=== PATIENT | female | born 1990 | race Hispanic/Latino ===

== ENCOUNTER 2020-02-01 15:41 | Outpatient (CLI) | payer OTHER, SELFPAY ==
--- NOTE | ~2020-02-01 | US_ITS ---
US breast LT complete DATE: 02/01/2020 16:11 INDICATION: Left breast pain TECHNIQUE: Real-time imaging and color flow imaging of the left breast COMPARISON: 12/05/2016 bilateral complete breast ultrasound examination FINDINGS: There is a benign appearing approximately 9.5 x 27.4 x 32.6 mm left axillary lymph node. No suspicious mass or shadowing of the left breast is evident. IMPRESSION: BI-RADS Category 2: Benign Reviewed, dictated and finalized at Location A. Reviewed, dictated and finalized at location A. IMPRESSION: BI-RADS Category 2: Benign
== END 2020-02-01 15:42 | disposition home or self-care (01) ==
PROVIDERS: Visit Provider Nurse Practitioner Obstetrics & Gynecology
DX: N64.4 Mastodynia (principal)
CPT/HCPCS: 76641

== ENCOUNTER 2022-01-08 21:52 | Emergency (ER) | payer OTHER, SELFPAY ==
--- NOTE | ~2022-01-08 | US_ITS ---
EXAMINATION: US OB <=14 wk fetus w TV DATE: 01/09/2022 00:23 INDICATION: Vaginal bleeding TECHNIQUE: Real-time transabdominal and transvaginal obstetric ultrasound. FINDINGS: No prior studies for comparison. The uterus measures 8.6 x 5.3 x 6.7 cm. No intrauterine gestational sac or pole identified. End ometrium measures 1.6 cm. Right ovary measures 3.1 x 1.4 x 2 cm. Left ovary measures 3.6 x 2.2 x 2.1 cm. There is normal vascular flow in both ovaries. IMPRESSION: 1. Endometrial thickening without evidence for gestational sac or pole. Differential diagnosis includes early intrauterine , ectopic and failed . Recommend follow-up wi th quantitative beta-hCG levels and ultrasound as clinically indicated. Reviewed, dictated and finalized at location A.
--- NOTE | 2022-01-08 21:58 | ECG_ITS ---
Measurements Intervals [place] Rate: 88 P: 48 [place]: 136 QRS: 21 QRSD: 89 T: 8 QT: 333 QTc: 405 Interpretive Statements SINUS RHYTHM BORDERLINE T WAVE ABNORMALITY- ANTERIOR LEADS BORDERLINE ECG Electronically Signed On 01-09-2022 6:33:53 CDT by Chris Naidu D.O.
[2022-01-08 22:03] VITALS: BP 127/57; PULSE 81; RESP 18; TEMP 36.9; O2SAT 100
[2022-01-08 22:20] VITALS: BP 120/75; PULSE 85; RESP 20; O2SAT 100
--- NOTE | 2022-01-08 22:21 | PC.NURSE ---
Pt tells this RN that she is actually approx 6 weeks with twins.
--- NOTE | 2022-01-08 22:37 | ED.CHESTPAIN ---
HPI - Chest Pain General Chief Complaint: Chest Pain Stated Complaint: chest pain, SOB, pressure in abdomen Time Seen by Provider: 01/08/22 22:08 History of Present Illness HPI narrative: 31-year-old female presents the emergency room for evaluation of left anterior inspiratory chest pain, abdominal pain, and resolved vaginal bleeding. Patient states that she is 6 weeks . Patient states the chest pain is worse with inspiration denies any recent upper respiratory signs or symptoms. Denies cough. Denies a fever. Patient states that she is got diffuse abdominal pain. Patient states that she was experiencing heavy vaginal bleeding earlier this week and since stopped this morning. Denies any passage of tissue or clots. Related Data Allergies Allergy/AdvReac Type Severity Reaction Status Date / Time No Known Allergies Allergy Verified 01/08/22 22:24 Review of Systems Review of Systems: CONSTITUTIONAL: Denies fever, chills, or sweats. EYES: Denies visual changes, redness, or discharge. ENT: Denies rhinorrhea, congestion, sore throat, or otalgia. CARDIOVASCULAR: Reports inspiratory chest pain RESPIRATORY: Denies cough or dyspnea. GASTROINTESTINAL: Reports abdominal pain GENITOURINARY: Reports vaginal bleeding SKIN: Denies rash or itching. MUSCULOSKELETAL: Denies back pain, joint pain, or myalgia. NEUROLOGIC: Denies headache, numbness, dizziness, or weakness. PSYCHIATRIC: Denies anxiety or depression. Exam Narrative: GENERAL: Well-appearing, well-nourished, and in no acute distress. HEAD: Normocephalic, atraumatic. EYES: PERRLA and EOMI. CHEST: Clear to auscultation. No respiratory distress. No wheezes rales or rhonchi HEART: Regular rate and rhythm. No murmur heard. Normal peripheral pulses. ABDOMEN: Soft, nontender, nondistended, normal active bowel sounds. EXTREMITIES: Normal range of motion. No edema. SKIN: Warm, dry, no rash. NEURO: No focal deficits. Alert and oriented x3. PSYCH: Normal mood and affect. Course Vital Signs Vital signs: Vital Signs Temperature 36.9 C 01/08/22 22:03 Pulse Rate 81 01/08/22 22:03 Respiratory Rate 18 01/08/22 22:03 Blood Pressure 127/57 L 01/08/22 22:03 Pulse Oximetry 100 01/08/22 22:03 Oxygen Delivery Room Air 01/08/22 22:03 Temperature 36.9 C 01/08/22 22:03 Pulse Rate 85 01/08/22 22:20 Respiratory Rate 20 01/08/22 22:20 Blood Pressure 120/75 01/08/22 22:20 Pulse Oximetry 100 01/08/22 22:20 Oxygen Delivery Room Air 01/08/22 22:20 MDM - Chest Pain MDM Narrative Medical decision making narrative: 31-year-old female who is 4 weeks presented to the emergency room complaints of abdominal discomfort, first trimester vaginal bleeding and inspirational chest pain. Patient does not have a history of coagulopathy or infectious symptoms. Pelvic ultrasound showed no evidence of intrauterine . Beta hCG was 2330. Suspect completed . Will recommend patient follow-up with her [facility] for correlation for beta-hCG trend. Imaging Data Radiologist's impression: Pelvic ultrasound: No evidence for IUP. Differential includes early date versus complete . Recommend correlation with the beta-hCG trend. Follow-up sonography recommended. Discharge Plan Discharge Clinical Impression: Spontaneous miscarriage Patient Disposition: Home, Self-Care Condition: Stable Instructions: Antibiotic Form, Miscarriage (ED) Additional Instructions: Recommend following up with your [facility] this week for repeated beta-hCG trending. Tylenol and ibuprofen as needed for pain. Follow-up/Referrals: UNKNOWN,DOCTOR [Primary Care Provider] - Time of Disposition: 01:51
[2022-01-08 22:49] LABS: Basophils Percent Auto 0.3 % (0.2-1.2); Eosinophils Absolute Auto 0.1 K/mm3 (0-0.3); Eosinophils Percent Auto 0.5 % (0-4.4); Hematocrit 30.7 % (37.0-47.0); Hemoglobin 10.2 g/dL (12.0-15.0); Immature Granulocyte Absolute 0.03 K/mm3 (0.00-0.031); Immature Granulocyte Percent A 0.3 % (0-0.5); Lymphocytes Absolute Auto 0.98 K/mm3 (0.9-3.2); Lymphocytes Percent Auto 10.1 % (18.3-44.2); Mean Corpuscular HGB Conc 33.2 g/dl (32-36); Mean Corpuscular Hemoglobin 26.5 pg (26-34); Mean Corpuscular Volume 79.7 fl (80-100); Mean Platelet Volume 10.8 fl (7.4-10.4); Monocytes Absolute Auto 0.6 K/mm3 (0.1-0.6); Monocytes Percent Auto 6.1 % (2.6-8.5); Neutrophils Percent Auto 82.7 % (45.5-73.1); Platelet Count Result 210 k/mm3 (150-375); Red Blood Count 3.85 M/mm3 (4.2-5.4); Red Cell Distribution Width 12.7 % (11.5-14.5); White Blood Count 9.7 K/mm3 (4.5-10.0)
[2022-01-08 23:04] LABS: Alanine Aminotransferase 21 U/L (6-35); Albumin Level 4.3 g/dL (3.5-5.1); Alkaline Phosphatase 74 U/L (38-126); Anion Gap 7 mmol/L (8-16); Aspartate Amino Transferase 29 U/L (14-36); Bilirubin,Total 0.2 mg/dL (0.2-1.3); Blood Urea Nitrogen 10 mg/dL (7-17); Calcium 8.8 mg/dL (8.4-10.2); Carbon Dioxide 26 mmol/L (22-30); Chloride 102 mmol/L (98-107); Estimated CRCL calculation 88 ml/min; Estimated Glomerular Filt Rate > 60; Glucose 102 mg/dL (65-110); Lipase 107 U/L (23-300); Potassium 3.7 mmol/L (3.4-5.0); Sodium 135 mmol/L (137-145)
[2022-01-08] MEDS: SODIUM CHLORIDE 0.9% IV 1,000 ML 999 ML IV CONT (23:10)
[2022-01-09 02:35] VITALS: BP 120/75; PULSE 75; RESP 18; O2SAT 99
== END 2022-01-09 02:36 | disposition home or self-care (01) ==
PROVIDERS: Emergency Provider Nurse Practitioner Family
DX: O03.9 Complete or unspecified spontaneous abortion without complication (principal); R94.31 Abnormal electrocardiogram [ECG] [EKG]
CPT/HCPCS: 36415; 76801; 76817; 80053; 83690; 84702; 85025; 93005; 96360; 96361; 99284; J7030

== ENCOUNTER 2022-08-20 16:44 | Emergency (ER) | payer OTHER, SELFPAY ==
[2022-08-20] VITALS (15 sets, daily range): BP systolic 111–124; BP diastolic 59–81; PULSE 69–81; RESP 12–19; TEMP 36.6; O2SAT 98–100
--- NOTE | ~2022-08-20 | CT_ITS ---
EXAMINATION: CTA chest PE protocol DATE: 08/20/2022 20:47 INDICATION: cp, sob, recent travel, on control TECHNIQUE: Computed tomography angiography (CTA) of the chest was performed with 100 mL Omnipaque-350 intravenous contrast timed to evaluate the pulmonary arteries. Coronal maximum intensity projection 3D-reconstructions were created by the technologist. The dose-length product (DLP) was 422.86 mGy-cm. Automated exposure control and iterative reconstruction technique were employed. COMPARISON: None. FINDINGS: Lung parenchyma and airways: 3 mm peripheral right upper lobe granuloma. 7 mm left lower lobe granulo ma versus hamartoma. Dependent atelectasis. Pleura: Unremarkable. Thoracic inlet, axillae and chest wall: Unremarkable. Thoracic aorta: Normal. Mediastinum: Normal. Heart and pericardium: Normal. Coronary artery calcifications: . Upper abdomen: No significant finding. Bones: No acute osseous finding. Pulmonary arteries: Study quality: Mild motion artifact and beam hardening artifact, but overall diag nostic. No pulmonary emboli detected. IMPRESSION: Mildly limited examination. No CT evidence of acute pulmonary embolus. No acute intrathoracic process detected Reviewed, dictated and finalized at location K. URE MANAGER
--- NOTE | ~2022-08-20 | XR_ITS ---
EXAMINATION: XR chest 2V DATE: 08/20/2022 17:38 INDICATION: Shortness of breath and central chest pain TECHNIQUE: PA and lateral views of the chest were obtained. COMPARISON: None FINDINGS: The lungs are clear with no focal airspace opacities, pulmonary edema, pleural effusion or pneumothor ax. The cardiomediastinal silhouette is normal. Visualized bones and soft tissues are unremarkable. IMPRESSION: 1. Normal chest radiograph. Reviewed, dictated and finalized at location A. ENCY EXAMINER IMPRESSION: 1. Normal chest radiograph.
--- NOTE | 2022-08-20 17:08 | ECG_ITS ---
Measurements Intervals [place] Rate: 84 P: 60 [place]: 144 QRS: 36 QRSD: 91 T: -10 QT: 344 QTc: 407 Interpretive Statements SINUS RHYTHM NONSPECIFIC T-WAVE ABNORMALITY- ANT/INF LEADS BASELINE ARTIFACT- II, III, AVR, AVF BORDERLINE ECG COMPARED TO ECG 01/08/2022 22:25:48 NO SIGNIFICANT CHANGES Electronically Signed On 08-20-2022 20:15:48 ASSISTANT PRODUCER by Chris Naidu D.O.
[2022-08-20 19:34] LABS: Basophils Percent Auto 0.5 % (0.2-1.2); Eosinophils Absolute Auto 0.2 K/mm3 (0-0.3); Eosinophils Percent Auto 2.2 % (0-4.4); Hematocrit 34.7 % (37.0-47.0); Hemoglobin 11.5 g/dL (12.0-15.0); Immature Granulocyte Absolute 0.02 K/mm3 (0.00-0.031); Immature Granulocyte Percent A 0.3 % (0-0.5); Lymphocytes Absolute Auto 1.34 K/mm3 (0.9-3.2); Lymphocytes Percent Auto 17.7 % (18.3-44.2); Mean Corpuscular HGB Conc 33.1 g/dl (32-36); Mean Corpuscular Hemoglobin 26.5 pg (26-34); Mean Platelet Volume 10.4 fl (7.4-10.4); Monocytes Absolute Auto 0.6 K/mm3 (0.1-0.6); Monocytes Percent Auto 7.2 % (2.6-8.5); Neutrophils Absolute Auto 5.5 K/mm3 (1.3-6.7); Neutrophils Percent Auto 72.1 % (45.5-73.1); Platelet Count Result 312 k/mm3 (150-375); Red Blood Count 4.34 M/mm3 (4.2-5.4); Red Cell Distribution Width 12.8 % (11.5-14.5); White Blood Count 7.6 K/mm3 (4.5-10.0)
[2022-08-20 19:42] LABS: Alanine Aminotransferase 16 U/L (6-35); Albumin Level 4.7 g/dL (3.5-5.1); Alkaline Phosphatase 71 U/L (38-126); Anion Gap 7 mmol/L (8-16); Aspartate Amino Transferase 22 U/L (14-36); Bilirubin,Total 0.3 mg/dL (0.2-1.3); Blood Urea Nitrogen 14 mg/dL (7-17); Calcium 8.8 mg/dL (8.4-10.2); Carbon Dioxide 29 mmol/L (22-30); Chloride 104 mmol/L (98-107); Estimated CRCL calculation 112 ml/min; Estimated Glomerular Filt Rate > 60; Glucose 97 mg/dL (65-110); Lipase 110 U/L (23-300); Potassium 3.7 mmol/L (3.4-5.0); Sodium 140 mmol/L (137-145)
[2022-08-20 19:53] LABS: INR 1.1; Troponin I < 0.012 ng/mL (0.000-0.034)
[2022-08-20 19:54] LABS: Influenza A QL RT-PCR Negative (Negative); Influenza B QL RT-PCR Negative (Negative); SARS-CoV-2 RNA PCR Negative
[2022-08-20 19:55] LABS: Partial Thromboplastin Time 33.3 SECONDS (22.3-36.8)
[2022-08-20 20:04] LABS: D Dimer 0.47 ug/mL (<0.48)
--- NOTE | 2022-08-20 20:26 | ED.SOB ---
HPI - SOB/Dyspnea General Chief Complaint: Shortness of Breath/Dyspnea Stated Complaint: shortness of breath Time Seen by Provider: 08/20/22 18:47 Source: patient Mode of arrival: ambulatory Limitations: no limitations History of Present Illness HPI Narrative: This is a 32 year old female that presents to the ER for shortness of breath ongoing over the last week and a half. Associated with a sharp, intermittent left-sided chest pain. Sometimes worse with breathing. She recently had a long-distance travel via car. She is on control. Reports history of anemia that she was concerned her hemoglobin may be low. Denies fever, cough, or lower extremity edema. Related Data Allergies Allergy/AdvReac Type Severity Reaction Status Date / Time No Known Allergies Allergy Verified 01/08/22 22:24 Review of Systems Review of Systems: CONSTITUTIONAL: Denies fever CARDIOVASCULAR: Reports chest pain. Denies edema. RESPIRATORY: Reports dyspnea. Denies cough All systems reviewed & are unremarkable except as noted in HPI and below PMFSH Past Medical History Medical History (Updated 08/20/22 @ 23:16 by Bhargavi Aquino PA-C) History of anemia Social History Social History (Updated 08/20/22 @ 20:29 by Bhargavi Aquino PA-C) Smoking status: Never smoker Exam Narrative: GENERAL: Well-appearing, well-nourished, and in no acute distress. HEAD: Normocephalic, atraumatic. EYES: EOMI. ENT: Mucous membranes moist. Oropharynx without tonsillar hypertrophy exudate or other lesions. CHEST: Clear to auscultation. No respiratory distress. No wheezes rales or rhonchi HEART: Regular rate and rhythm. No murmur heard. Normal peripheral pulses. EXTREMITIES: Normal range of motion. No edema. SKIN: Warm, dry, no rash. NEURO: No focal deficits. Alert and oriented x3. PSYCH: Normal mood and affect Course Vital Signs Vital signs: Vital Signs Temperature 97.9 F 08/20/22 17:02 Pulse Rate 81 08/20/22 17:02 Respiratory Rate 14 08/20/22 17:02 Blood Pressure 124/59 L 08/20/22 17:02 Pulse Oximetry 100 08/20/22 17:02 Temperature 97.9 F 08/20/22 17:02 Pulse Rate 71 08/20/22 21:48 Respiratory Rate 18 08/20/22 21:48 Blood Pressure 114/72 08/20/22 21:01 Pulse Oximetry 100 08/20/22 21:48 MDM - SOB/Dyspnea MDM Narrative Medical decision making narrative: This is a 32-year-old female that presents to the emergency department for shortness of breath ongoing over the last week and a half. She is afebrile and nontoxic-appearing. Her vitals are stable. Oxygen saturation is 100% on room air. Lungs are clear on exam. CBC is without leukocytosis. Shows normocytic anemia with hemoglobin of 11.5. Metabolic panel without concerning findings. EKG without concerning changes and baseline and 3-hour troponin are negative. Influenza and flu screens are negative. With recent travel and exogenous estrogen use with complaint of chest pain and shortness of breath CTA of the chest was obtained. No evidence for PE or acute cardiopulmonary abnormality. Patient was updated on work-up. Instructed to have close follow-up with her primary provider. She was given warnings to return to the ER Differential Diagnosis Differential diagnosis: Likely community acquired pneumonia, asthma with exacerbation, pulmonary embolism and other (anemia) Lab Data Attestation: I reviewed the patient's lab results. 08/20/22 19:19 08/20/22 19:19 Labs: Lab Results 08/20/22 08/20/22 08/20/22 Range/Units 19:07 19:19 19:19 WBC 7.6 (4.5-10.0) K/mm3 RBC 4.34 (4.2-5.4) M/mm3 Hgb 11.5 L (12.0-15.0) g/dL Hct 34.7 L (37.0-47.0) % MCV 80.0 (80-100) fl MCH 26.5 (26-34) pg MCHC 33.1 (32-36) g/dl RDW 12.8 (11.5-14.5) % Plt Count 312 (150-375) k/mm3 MPV 10.4 (7.4-10.4) fl Immature Gran % (Auto) 0.3 (0-0.5) % Neut % (Auto) 72.1 (45.5-73.1) % Lymph % (Auto) 17
[2022-08-20 22:00] LABS: Folic Acid > 20.0 ng/mL (2.76->20)
[2022-08-20 22:53] LABS: Troponin I < 0.012 ng/mL (0.000-0.034)
== END 2022-08-20 23:23 | disposition home or self-care (01) ==
PROVIDERS: Emergency Medicine; Emergency Provider Physician Assistant
DX: R06.00 Dyspnea, unspecified (principal); D64.9 Anemia, unspecified; Z20.822 Contact with and (suspected) exposure to COVID-19; R94.31 Abnormal electrocardiogram [ECG] [EKG]
CPT/HCPCS: 36415; 71046; 71275; 80053; 81025; 82607; 82746; 83690; 84484; 85025; 85380; 85610; 85730; 87636; 93005; 99284; Q9967

== ENCOUNTER 2022-10-01 14:02 | Outpatient (CLI) | payer OTHER, SELFPAY ==
--- NOTE | 2022-10-01 14:10 | ECHO_ITS ---
Patient Info Name: Prabha Lebron Age: 32 years : 1990 Gender: Female Ht: 62 in Wt: 213 lbs BSA: 2.11 m2 HR: 71 bpm BP: 124 / 82 mmHg Technical Quality: Fair Exam Date: 10/01/2022 2:15 PM Exam Location: [facility] Patient Status: Outpatient Admit Date: 10/01/2022 Staff Ordering Physician: Joey Austin MD Crochet Beader: Mulu Voss RDCS Attending Provider: Joey Austin MD Referring Physician: Norman CARRILLO; Exam Type: CA echo doppler color flow Study Info Indications R06.02 - Shortness of breath Complete two-dimensional, color flow and Doppler transthoracic echocardiogram is performed. Summary 1. Complete two-dimensional, color flow and Doppler transthoracic echocardiogram is performed. 2. Left ventricular chamber dimension is normal. 3. Left ventricular systolic function is normal, estimated at 60-65%. 4. The left ventricular diastolic function is normal. 5. E/e' 7 is not elevated. 6. Global longitudinal strain is normal at -18.6%. 7. Left atrial chamber dimension is mildly enlarged. 8. No pulmonary hypertension, estimated pulmonary arterial systolic pressure is 26 mmHg. 9. There is trace pulmonic regurgitation. Left Ventricle E/e' 7 is not elevated. Global longitudinal strain is normal at -18.6%. Left ventricular chamber dimension is normal. Left ventricular systolic function is normal, estimated at 60-65%. The left ventricular diastolic function is normal. Right Ventricle Right ventricular systolic function is normal and with normal TAPSE 2.4 cm. Right ventricular chamber dimension is normal. Left Atria Left atrial chamber dimension is mildly enlarged. Right Atria Right atrial chamber dimension is normal. Aortic Valve The aortic valve is trileaflet. There is no aortic valve stenosis. There is no aortic valve regurgitation. Pulmonic Valve There is trace pulmonic regurgitation. Mitral Valve There is no mitral valve stenosis. There is no mitral valve regurgitation. Tricuspid Valve There is no tricuspid valve regurgitation. No pulmonary hypertension, estimated pulmonary arterial systolic pressure is 26 mmHg. Pericardium/Pleural There is no pericardial effusion. Inferior Vena Cava Normal inferior vena cava with >50% collapse upon inspiration consistent with normal right atrial pressure, 5 mmHg. Aorta The aortic root size at the sinus of Valsalva is normal. Left Ventricular Outflow Tract Name Value Normal LVOT 2D LVOT Diameter 1.9 cm LVOT Doppler LVOT Peak Gradient 6 mmHg LVOT Mean Gradient 3 mmHg LVOT VTI 25 cm LVOT VTI/AV VTI Ratio 0.9 LVOT Stroke Volume 69 ml LVOT CO 4.8 l/min LVOT CI 2.3 l/min/m2 Pulmonic Valve Name Value Normal R
--- NOTE | 2022-10-01 19:05 | WPDPFTINT ---
PFT Procedure Performed PFT Procedure Performed Spirometry with Pre/Post Bronchodilator Plethysmography (Lung Vol) Diffusing Cap (DLCO) PFT Interpretation DOS: 10/01/2022 REQUESTING: Dr. Joey Austin REASON FOR TESTING: Dyspnea PULMONARY FUNCTION TESTS The patient struggled with repeat ability of spirometry before and after bronchodilator. Spirometry: The pre bronchodilator FVC is 4.03 L, 112%, normal. The pre bronchodilator FEV1 is 3.37 L, 108%, normal. FEV1: FVC ratio was 84%, Normal. After bronchodilator, there is an 8% drop in the FEV1 and 1% drop in the FVC. These are not statistically significant changes. Lung volumes: Total lung capacity is 6.43 L, 123% predicted, normal. Residual volume is 2.41 L, 205% predicted, consistent with severe air trapping. Airway resistance is 80 cmH20/L/se3c, not elevated. Diffusion: DLCO 20.2, 63% predicted, mildly decreased. DLCO/VA is 4.48, 80% predicted, normal. Flow volume loop: The flow volume loop was not reproducible. IMPRESSION: Normal spirometry without response to bronchodilator, severe air trapping and a mild diffusion impairment which corrects for alveolar volume. No response to bronchodilator. There is no prior PFT for comparison. This is a nonspecific pattern. Anemia can cause a decrease in diffusing capacity. Clinical correlation is recommended. Daylin Fiore MD
--- NOTE | 2022-10-01 19:14 | WPDSIXMINUTE ---
Six Minute Walk Procedure Procedure Performed Pulmonary Stress Test (6 min walk) Six Minute Walk Six Minute Walk: DOS: 10/01/2022 ? REQUESTING:? Dr. Joey Austin ? REASON FOR TESTING:? Exertional dyspnea SIX MINUTE WALK This test was conducted according to ATS guidelines. The room air saturation was 98%. The initial pulse was 72. Blood pressure was 119/77. The patient walked for 6 minutes while breathing room air. No walking aid was used. Saturation was stable between 94% and 99%. Pulse ranged from 70 beats per minute to 96 beats per minute. The pulse returned to baseline during recovery. The patient walked 800 ft/ 243.8 m. On the Nicole dyspnea scale, the patient reported dyspnea of 3-4 while walking. She reported a Nicole dyspnea rating during recovery. She did not stop to rest during the walk. IMPRESSION: The patient did not desaturate with walking. There is no indication for supplemental oxygen with exertion. The distance walked 243 m is less than expected. Normal distance for walking on a 6 Minute Walk for females is 400 to 800 meters. Clinical correlation is recommended. Daylin Fiore MD
== END 2022-10-01 14:03 | disposition home or self-care (01) ==
LOC: ANHCARD 14:03
PROVIDERS: Visit Provider Internal Medicine Pulmonary Disease
DX: R06.02 Shortness of breath (principal); R06.00 Dyspnea, unspecified; J40 Bronchitis, not specified as acute or chronic; Z72.0 Tobacco use
CPT/HCPCS: 93306; 94060; 94618; 94726; 94729

== ENCOUNTER 2023-05-28 10:30 | Outpatient (CLI) | payer OTHER, SELFPAY ==
--- NOTE | ~2023-05-28 | MMUS_ITS ---
EXAMINATION: MM diagnostic tc BI w isaias, US breast BI complete HISTORY: Palpable left breast abnormality. Bilateral breast pain. TECHNIQUE: Additional 3-D tomosynthesis images of the breasts were performed and synthetic 2-D images were generated. CAD analysis was submitted and interpreted. High resolution bilateral complete breas t ultrasound was performed. COMPARISON: None BREAST PARENCHYMAL COMPOSITION: The breasts are heterogeneously dense, which may obscure small masses FINDINGS: MAMMOGRAPHIC FINDINGS: There are no suspicious masses, calcifications or architectural distortion in either breast to sugges t malignancy. ULTRASOUND: Complete bilateral US of all 4 quadrants of the breasts and retroareolar region was reviewed. Oral he terogeneous echotexture without focal solid or cystic mass. IMPRESSION: 1. No evidence for malignancy in either breast. 2. Routine yearly screening mammogram and regular clinical breast examination are recommended. BI-RADS Category 1: Negative Reviewed, dictated and finalized at location A. IMPRESSION: 1. No evidence for malignancy in either breast. 2. Routine yearly screening mammogram and regular clinical breast examination a re recommended. BI-RADS Category 1: Negative
== END 2023-05-28 10:31 | disposition home or self-care (01) ==
PROVIDERS: PCP Internal Medicine; Visit Provider Nurse Practitioner Obstetrics & Gynecology
DX: R92.8 Other abnormal and inconclusive findings on diagnostic imaging of breast (principal)
CPT/HCPCS: 76641; 77062; 77066; G0279

== ENCOUNTER 2023-12-18 09:42 | Emergency (ER) | payer OTHER, SELFPAY ==
[2023-12-18 09:46] VITALS: BP 142/69; PULSE 90; RESP 16; TEMP 36.4; O2SAT 100
--- NOTE | 2023-12-18 09:48 | ED.ANIMALBIT ---
HPI - Animal Bite General Chief Complaint: Animal Bite Stated Complaint: bug bite Time Seen by Provider: 12/18/23 09:47 History of Present Illness HPI narrative: 33-year-old female presents to the emergency room for evaluation of suspected red and bites to her shoulders, arms and legs. Patient states she is concerned that something else may have better. Patient reports a subjective fever last night of 990. Patient denies any rashes, pruritus, shortness of breath difficulty breathing. Patient denied taking medications following her suspected bug bites. Related Data Allergies Allergy/AdvReac Type Severity Reaction Status Date / Time No Known Allergies Allergy Verified 09/13/22 14:06 Review of Systems Review of Systems: ROS unremarkable except for noted in HPI PMFSH Past Medical History Medical History Exposure to TB History of anemia Social History Social History Smoking status: Never smoker Exam Narrative: GENERAL: Well-appearing, well-nourished, no physical limitations, and in no acute distress. HEAD: Normocephalic, atraumatic. EYES: Conjunctivae normal, PERRLA and EOMI. CHEST: Clear to auscultation. No respiratory distress. No wheezes rales or rhonchi. No tenderness. HEART: Regular rate and rhythm. No murmur heard. Normal peripheral pulses. ABDOMEN: Soft, nontender, nondistended, normal active bowel sounds. EXTREMITIES: Normal range of motion. No edema. No clubbing or cyanosis SKIN: Warm, dry, no rash. No noted wounds. No evidence of insect bites. No erythema, rash, vesicular lesions, discharge noted to shoulders forearms or legs. NEURO: No focal deficits. Alert and oriented x3. MAEW. CN's II-XI intact bilaterally, normal gait PSYCH: Cooperative. Normal mood and affect. Discharge Plan Discharge Clinical Impression: Insect bite, Physically well but worried Patient Disposition: Home, Self-Care Condition: Stable Instructions: Antibiotic Form Additional Instructions: Recommend taking a daily antihistamine such as Zyrtec or Toña. May apply [id number] steroid ointment to any suspected insect bites. Prescriptions: No Action mometasone-formoterol 200-5 mcg/actuation HFA aerosol inhaler 1 puff inhalation BID Qty: 13 2RF (DME) inhalational spacing device Spacer See Rx Instructions .ROUTE .MEDSUPPLY Qty: 2 0RF Rx Instructions: As directed albuterol sulfate 90 mcg/actuation HFA aerosol inhaler 2 inh inhalation Q4H PRN (Reason: shortness of breath or wheezing) Qty: 8.5 3RF Follow-up/Referrals: Alejandrina,Praveen Chery MD [Primary Care Provider] - Time of Disposition: 09:50
[2023-12-18 10:40] VITALS: RESP 16; O2SAT 100
== END 2023-12-18 10:42 | disposition home or self-care (01) ==
LOC: ANHED 09:58
PROVIDERS: Emergency Provider Nurse Practitioner Family; PCP Internal Medicine
DX: Z03.89 Encounter for observation for other suspected diseases and conditions ruled out (principal); Z86.2 Personal history of diseases of the blood and blood-forming organs and certain disorders involving the immune mechanism
CPT/HCPCS: 99281

== ENCOUNTER 2024-03-04 09:46 | Outpatient (RCR) | payer OTHER, SELFPAY ==
--- NOTE | 2024-03-04 10:28 | OPREHPOC ---
Outpatient Therapy Plan of Care This is a Multidisciplinary Plan of Care that may contain components documented by all disciplines (PT, OT, and ST.) PT Problem 1 PT Problem #1 Knowledge Deficit PT Goal 1 Goal 1. Patient will perform independent HEP Target Visit 3 PT Problem 2 PT Problem #2 Impaired Functional ADLs PT Goal 1 Goal 1. Patient will report no more than 1 instance of incontinence per week Target Visit 6 PT Problem 3 PT Problem #3 Pain PT Goal 1 Goal 1. Pelvic pain no higher than 1/10 with pelvic exam, intercourse, etc. Target Visit 6 PT Problem 4 PT Problem #4 Impaired Strength PT Goal 1 Goal 1. Improve pelvic floor strength to 4/5 to decrease incontinence 2. Improve pelvic floor endurance to 10 seconds to decrease incontinence Target Visit 6
--- NOTE | 2024-03-04 10:28 | PTOPEVAL1 ---
Assessment and note entered by Deidra Acosta DPT Evaluation Information Assessment Status Evaluation ICD-10 Condition Codes (PT) R10.2 Subjective Information Pt reports pain with sexual activity for years, also notices with pap smears at times. Pain is worsening over time. Highest pain 5/10 and lowest 0/10. Voids less than 10 times a day, wakes up 1 time at night to void. Can hold urge to void a short amount of time. Urinary incontinence a few times a day. Volume will usually be a few drops, sometimes more. Sometimes will need to change clothes. Denies pain with urination. BM once every other day, sometimes with pain. Pt has been 6 times, 4 deliveries. All vaginal deliveries. Some tearing with 2 of them. Thinks her pain started sometime after her 3rd baby. History of ovarian cyst. No b/b issues other than constipation. 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 Reports her urinary issues will affect her due to difficulty taking a bathroom break. Patient goal: decrease pain, stronger pelvic floor and not leak No return to MD scheduled currently. Reported Pain Level Pain Score 0: Self Report Assessment PT Clinical Summary The patient is presenting to skilled therapy with a several year history of pelvic pain as well as urinary incontinence. She presents with increased pelvic floor muscle tone, decreased pelvic floor strength and endurance and decreased core strength which are contributing to her daily incontinence and pelvic pain. She will highly benefit from therapy to address these impairments in order to reduce pain, reduce incontinence, and restore full function. Plan of Care Interventions Electrical Stimulation,Hot Pack/Cold Pack,Manual Therapy,Neuro Re-education,Patient/Caregiver Education,Therapeutic Activities,Therapeutic Exercise PT Services Indicated Yes Treatment Frequency and 1 time a week for 6 visits Duration These treatments will address the objective and functional deficits as defined above. The patient will be advanced safely and appropriately in order for the patient to progress towards his/her prior level of function. Additional exercise
--- NOTE | 2024-03-12 11:32 | PCPTNOTE ---
Patient did not show up for appointment on 03/12/24. Therapist called patient who stated she wrote the time down wrong and scheduled another visit for next week.
--- NOTE | 2024-03-17 15:21 | PCPTNOTE ---
Patient did not show up for appointment on 03/17/24.
--- NOTE | 2024-04-15 09:04 | PCPTNOTE ---
Patient did not show up for appointment 04/15/24.
--- NOTE | 2024-04-15 10:06 | PTOPDC ---
Assessment and note entered by Deidra Acosta, DPT Evaluation Information Assessment Status Discharge - Pt Not Present ICD-10 Condition Codes (PT) R10.2 Subjective Information - Assessment PT Clinical Summary The patient has no showed 3 treatment sessions and not attended therapy since her initial evaluation on 03/04/24. She will be discharged per attendance policy and require a new script to resume therapy in the future. Plan of Care PT Services Indicated No
== END 2024-04-15 10:19 | disposition home or self-care (01) ==
LOC: ANHGOSHPT 09:46
PROVIDERS: PCP Internal Medicine; Visit Provider Obstetrics & Gynecology
DX: R10.2 Pelvic and perineal pain (principal)
CPT/HCPCS: 97110; 97161

== ENCOUNTER 2024-10-04 13:15 | Emergency (ER) | payer OTHER, SELFPAY ==
--- NOTE | ~2024-10-04 | XR_ITS ---
EXAMINATION: XR chest 2V DATE: 10/04/2024 13:34 INDICATION: Chest pain. Dyspnea. TECHNIQUE: Frontal and lateral views of the chest were obtained. COMPARISON: Chest 2 views 08/20/2022, chest CT 08/20/2022 FINDINGS: There is no pneumonia, pleural effusion, or pneumothorax. The heart size is normal. IMPRESSION: 1. No acute cardiopulmonary disease. Reviewed, dictated and finalized at location A. GE CONTROL OPERATOR
--- NOTE | 2024-10-04 13:16 | ECG_ITS ---
Test Date: 2024-10-04 13:21:25 Measurements Intervals Murray Rate: 80 P: 63 VA: 134 QRS: 40 QRSD: 83 T: 16 QT: 322 QTc: 372 Interpretive Statements SINUS RHYTHM NONSPECIFIC T-WAVE ABNORMALITY- ANTERIOR LEADS BASELINE ARTIFACT- I, II, III, AVR, AVL, AVF, V1-V6 BORDERLINE ECG No previous ECG available for comparison Electronically Signed On 10-04-2024 16:56:56 INVENTORY CONTROL SUPERVISOR by Chris Naidu D.O.
--- OUTSIDE RECORDS SUMMARY | 2024-10-04 13:17 | XMS_ITS | Clinical Summary ---
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 Gender Identity Not on file Sexual Orientation Not on file Plan of Treatment Health Maintenance Due Date Last Done Comments Hepatitis C Virus (HCV) Screening 1992 TdaP Immunization 1992 Hepatitis B Immunization (1 of 3 - 19+ 3-dose series) 02/13/2011 Pap Smear 02/13/2013 Cervical Cancer Screening (CCS) 02/13/2022 HPV/Cotest 02/13/2022 Influenza Immunization (#1) 2024 02/0 03/2019, 07/24/2017 SARS-COV-2 Immunization ( season) 2024 Respiratory Syncytial Virus (RSV) Immunization (Adult) (1 - 1-dose 75+ series) 02/13/2067 Meningococcal Immunization (ACWY) Aged Out No longer eligible b ased on patient's age to complete this topic Pneumococcal Immunization Combined Aged Out No longer eligible b ased on patient's age to complete this topic Rotavirus Immunization Aged Out No lo nger eligible based on patient's age to complete this topic Insurance MEDICAID [employer] Care Teams Anthropology Instructor Relationship Specialty Start Date End Date Praveen Tinoco MD [address] [place] [address] PCP - General Geriatric Medicine 10/19/22
--- OUTSIDE RECORDS SUMMARY | 2024-10-04 13:17 | XMS_ITS | Continuity of Care Document ---
Author Organization [facility] Address [address] [place] [address] Phone Care Team Providers Care Dog Food Dough Mixer Name Role Phone Unavailable Unavailable Unavailable Procedures Procedure Date Comprehensve oral evaluation Dental Bitewings Radiographic, Four Imag es Dental Panoramic Radiographic Image Dental prophylaxis adult Advance Directives Directive Yes / No Effective Date File Name No Information Encounters Encounter Description Practice Location Reason(s) For Visit Diagnoses Date Provider Providers Copied on Encounter [facility] , [address], [place], [place], [id number], [place] tel:[phone] [facility] 1201 5 No Information Family History Family Member Type Diagnosis Age At Onset No Information Payers Payer name Insurance type Covered alliance party ID Authoriza tion(s) D [facility] 17 [id number] Social History Type Description Quantity Date Captured Comments Sex Female Smoking Status No Information Chief Complaint And Reason For Visit No Information Reason For Referral Reason For Referral No Information History Of Present Illness Encounter Date Complaint History Of Prese nt Illness No Information Functional Status Date Functional Assessmen t No Information Instructions Date Instruction Additional Infor mation No Information Assessments Type Assessment Date No Information Patient Care Teams Name Effective Dates (start - stop) Status Members No Information
--- OUTSIDE RECORDS SUMMARY | 2024-10-04 13:17 | XMS_ITS | Patient Health Summary ---
Author Organization [facility] Address [address] [place] [address] Care Team Providers Care Organic Preparation Technician Name Role Phone Unavailable Primary Care Provider Unavailabl e Note from [facility],non-owned Affiliates and Associated Physician Practices is amultiple site organization consisting of ambulatory clinics and hospital sitesin [place], [place], [place] and [place]. This disclosure is being madepursuant to the Care Everywhere program and may not contain all information available regarding this patient. Last updated 18.[facility] Allergies No known active allergies Medications * Be aware that medications may not be up to date on this document. Alwaysverify current medications with the patient. * ibuprofen (MOTRIN) 600 MG tablet(Started 07/20/2012) Take 1 Tab by mouth every 6 hours. 1 refill left * docusate sodium (COLACE) 100 MG capsule(Started 07/20/2012) Take 1-2 Caps by mouth nightly as needed for Constipation. 1 refill left * Vit-Fe Fumarate-FA ( VITAMIN WITH IRON) tablet(Started 07/20/2012) Take 1 Tab by mouth daily with breakfast. 11 refills left * ferrous sulfate 325 (65 FE) MG tablet(Started 07/20/2012) Take 1 Tab by mouth 2 times daily with morning and evening meal. 2 refills left Active Problems Problem Noted Date Diagnosed Date Echogenic focus of heart of fetus affecting antepartum care of mother, fetus 1 08/29/2017 Sickle cell trait 07/18/2012 Supervision of normal first 07/16/2012 TB (tuberculosis) 07/16/2012 Immunizations * TDAP (7yrs+)(Given 07/19/2012) Social History Tobacco Use Types Packs/Day Years Used Date Smoking Tobacco: Never Smokeless Tobacco: Never Alcohol Use Standard Drinks/Week Comments No 0 (1 standard drink = 0.6 oz pur e alcohol) Sex and Gender Information Value Date Recorded Sex Assigned at Not on file Gender Identity Not on file Sexual Orientation Not on file Last Filed Vital Signs Vital Sign Reading Time Taken Comments Blood Pressure 124/74 07/20/2012 8:25 AM INDUSTRIAL CHEMISTRY TEACHER Pulse 78 07/20/2012 8:25 AM INDUSTRIAL CHEMISTRY TEACHER Temperature 37 C (98.6 F) 07/20/2012 8:25 AM INDUSTRIAL CHEMISTRY TEACHER Respiratory Rate 18 07/20/2012 8:25 AM INDUSTRIAL CHEMISTRY TEACHER Oxygen Saturation 100% 07/18/2012 11:29 AM INDUSTRIAL CHEMISTRY TEACHER Inhaled Oxygen Concentration - - Weight 96.7 kg (213 lb 3.2 oz) 07/18/2012 7:41 A M INDUSTRIAL CHEMISTRY TEACHER Height 160 cm (5' 3 ) 07/18/2012 7:41 AM INDUSTRIAL CHEMISTRY TEACHER Body Mass Index 37.77 07/18/2012 7:41 AM INDUSTRIAL CHEMISTRY TEACHER Procedures * SONOGRAM - COMPLETE(Performed 08/30/2017) Performed for Encounter for supervision of normal first in second trimester ([facility]ERLY [facility]), Echogenic focus of heart of fetus affecting antepartum care of mother, fetus 1 ([facility]) * IMAGING/RADIOLOGY/XRAY RESULTS ORDER(Performed 11/05/2012) * IMAGING/RADIOLOGY/XRAY RESULTS ORDER(Performed 11/05/2012) * IMAGING/RADIOLOGY/XRAY RESULTS ORDER(Performed 11/05/2012) * IMAGING/RADIOLOGY/XRAY RESULTS ORDER(Performed 07/28/2012) * IMAGING/RADIOLOGY/XRAY RESULTS ORDER(Performed 07/25/2012) * HGB HCT PANEL(Performed 07/19/2012) * BLOOD GASES CORD NANNETTE(Performed 07/18/2012) * BLOOD TYPE VERIFICATION(Performed 07/18/2012) * EPIDURAL BLOCK(Performed 07/18/2012) * DRUG ABUSE URINE PANEL(Performed 07/18/2012) Performed for Supervision of normal first ([facility]) * TYPE + SCREEN PANEL(Performed 07/18/2012) Performed for Supervision of normal first ([facility]) * CBC W AUTO DIFFERENTIAL(Performed 07/18/2012) Performed for Supervision of normal first ([facility]) * DIFFERENTIAL MANUAL(Performed 07/18/2012) Performed for Supervision of normal first ([facility]) * IMAGING/RADIOLOGY/XRAY RESULTS ORDER(Performed 07/11/2012) * SONOGRAM - COMPLETE(Performed 06/23/2012) * GLUCOSE PROTEIN KETONE URINE - POINT OF CAR(Performed 06/17/2012) * SONOGRAM - COMPLETE(Performed 03/19/2012) * SONOGRAM - COMPLETE(Performed 02/20/2012) * US OB LESS THAN 14 WKS W TRANSVAG(Performed 12/07/2011) Performed for Supervision of other normal (HCC) Results * SONOGRAM - COMPLETE (08/30/2017 8:22 AM INDUSTRIAL CHEMISTRY TEACHER) Only the most recent of4 resultswithin the time period is included. Anatomical Region Laterality Modality Other 08/30/2017 8:22 AM INDUSTRIAL CHEMISTRY TEACHER Narrative 08/30/2017 12:20 PM INDUSTRIAL CHEMISTRY TEACHER [facility] PHONE: FAX: Pat. Name: GERRY BLOOD Pat. No: [id number] Study Date: 08/30/2017 8:22am , Age: 07 1990, 27 Pregnancies: 3, Para 1 Height: 62 in Weight: 184 lb LMP: Unknown GA by US: 21w0d FRANCISCO: 01/10/2018 GA Selected: 20w5d (From Known E) FRANCISCO: 01/12/2018 Referring MD: Fe Patrick MD Kiln Furniture Caster: Kylee Hinojosa RDMS CPT4: 75279,90224 BMI: 33.65 Hist/Ind: Echogenic Focus on Outside Scan Negative Sequential Screen MEASUREMENTS & AGE GROWTH EVALUATION Measurement GA Range Srce %for GA Ratios ----- ---- ------- BPD 5.1 cm 21w3d (51s4x-77u5d) Hadl BPD 78% FL/BPD 0.67 HC 18.3 cm 20w5d (88u7o-40k6v) Hadl HC 37% FL/AC 0.22 AC 15.3 cm 20w4d (91g9a-36p4j) Hadl AC 36% HC/AC 1.19 (1.06 - 1.24) FL 3.4 cm 20w5d (73f8n-19q7d) Hadl FL 42% CI 0.81 (0.70 - 0.86) HL 3.4 cm 21w5d (14t5t-94y7u) Brendan HL 66% GA for sonogram 21w0d (04j9o-69s6p) Weight Estimate: based on (HL,BPD,HC,AC,FL) Avg Weight: 369 gm (315-423gm) Hadloc : 0lbs, 13oz Normal: 380 gm (284-475gm) Hadloc Wt% 42% for 20w5d Cervix: Length: 4.8 cm Approach: transvaginal Funneling: not present Heart Rate: 161 bpm Amniotic Fluid Index: 05.5cm (Deepest Pocket) EVAL, PLACENTA Presentation: cephalic Umbilical Cord: 3 Vessels Placenta: posterior Cord Insert: Normal Heart Rate: 161 bpm Amniotic Fluid Volume: normal Anatomy!Normal!Abnormal!Suboptimal!Comments Cranium ! x ! ! ! Mdl (CSP/Thal! x ! ! ! Cerebellum ! x ! ! ! Cisterna M. ! x ! ! ! Ventricles ! x ! ! ! Choroid Plexu! ! x ! ! Nuchal Fold ! x ! ! ! Profile ! x ! ! ! Lip ! x ! ! ! Nasal Bone ! x ! ! ! Spine ! x ! ! ! Lungs ! x ! ! ! 4 Chamber Hea! x ! ! ! LVOT ! x ! ! ! RVOT ! x ! ! ! 3 Vessel View! x ! ! ! Cross-over ! x ! ! ! Ductal Arch ! x ! ! ! Aortic Arch ! x ! ! ! Caval View ! x ! ! ! Situs ! x ! ! ! Diaphragm ! x ! ! ! Stomach ! x ! ! ! Bowel ! x ! ! ! Kidneys ! x ! ! ! Bladder ! x ! ! ! Cord In! x ! ! ! 3 Vessel Cord! x ! ! ! Upper Extremi! x ! ! ! Hands ! x ! ! ! Lower Extremi! x ! ! ! Feet ! x ! ! ! External Mar! x ! ! ! CLINICAL SUMMARY Study Number: 1 A single fetus is identified in cephalic presentation. The measurements today are consistent with appropriate growth for the FRANCISCO provided. The FRANCISCO selected is based on a prior ultrasound examination. The amniotic fluid volume is normal. The placenta is posterior. No major malformations are seen. The patient was advised that ultrasound does not allow detection of all structural or chromosomal abnormalities. Left OVEN TENDER BAGELS is seen. This is small. No other anomalies noted on today's scan. No evidence of an EIF on today's scan. IMPRESSION: Single live IUP at 20w5d Appropriate growth No major malformations are seen within the limitations of ultrasound Transvaginal cervical length measures 4.8cm RECOMMEND: Follow up ultrasound as clinically indicated. Thank you for allowing us the opportunity to care for your patient Jamey Mcdonnell MD <Electronic Signature> 08/30/2017 12:20pm Zully Rodas MD [facility] ORDERABLES * IMAGING/RADIOLOGY/XRAY RESULTS ORDER (11/05/2012 7:39 AM CDT) Only the most recent of6 resultswithin the time period is included. Anatomical Region Laterality Modality Other Narrative 11/05/2012 7:39 AM CDT Procedure Note Document, Scanned - 11/05/2012 7:39 AM CDT Scanned Document IMAGING * (ABNORMAL) HGB HCT PANEL (07/19/2012 6:18 AM INDUSTRIAL CHEMISTRY TEACHER) Pathologist [facility] Hemoglobin 9.2(L) 12.0 - 15.6 g/dL 07/19/2012 7:00 AM INDUSTRIAL CHEMISTRY TEACHER [facility] Hematocrit 26.8(L) 35.9 - 45.5 % 07/19/2012 7:[address] [facility] Blood specimen (specimen) BLOOD SPECIMEN / Unknown 07/19/2012 6:18 AM INDUSTRIAL CHEMISTRY TEACHER 07/19/2012 6:28 AM INDUSTRIAL CHEMISTRY TEACHER Emelyn Guerra MD LAB - OLIVERIO TOLOGY ORDERABLES [facility] [address] [place] [address] * (ABNORMAL) BLOOD GASES CORD VENOUS (07/18/2012 2:21 PM INDUSTRIAL CHEMISTRY TEACHER) Pathologist [facility] pH Cord Venous 7.34 7.28 - 7.40 pH 07/18/2012 2:[address] [facility] pCO2 Cord Venous 47(H) 35 - 45 mm hg 07/18/2012 2:[address] [facility] pO2 Cord Venous 31 22 - 33 mm hg 07/18/2012 2:[address] [facility] HCO3 Cord Venous 25(H) 22 - 24 mmol/L 07/18/2012 2:[address] [facility] BE Cord Venous -1 mmol/L 07/18/2012 2:[address] [facility] O2 Saturation Cord Venous 56 % 07/18/2012 2:[address] [facility] Mode Unknown (none) 07/18/2012 2:21 PM INDUSTRIAL CHEMISTRY TEACHER [facility] Sample Site Other (none) 07/18/2012 2:[address] [facility] Sample Type Venous 07/18/2012 2:[address] [facility] Sample Maker Hand ID [id number] 07/18/2012 2:[address] [facility] Notified Who wireless construction managerxiao alfred 07/18/2012 2:[address] [facility] Notification Time 07/18/2012 14:21 07/18/2012 2:21 PM INDUSTRIAL CHEMISTRY TEACHER [facility] Notified By bfrt 07/18/2012 2:[address] [facility] Blood specimen (specimen) CORD BLOOD SPECIMEN / Unknown 07/18/2012 1:59 PM INDUSTRIAL CHEMISTRY TEACHER Emelyn Guerra MD LAB - BLOO D GASES ORDERABLES Performing Organization Address City/[facility] Co de Phone Number [facility] [address] [place] [address] * BLOOD TYPE VERIFICATION (07/18/2012 2:03 PM INDUSTRIAL CHEMISTRY TEACHER) ABO O 07/18/2012 2:03 PM INDUSTRIAL CHEMISTRY TEACHER [facility] Rh Type Positive 07/18/2012 2:03 PM INDUSTRIAL CHEMISTRY TEACHER [facility] B[facility] Miscellaneous samples (specimen) BLOOD SPECIMEN / Unknown 07/18/2012 1:41 PM INDUSTRIAL CHEMISTRY TEACHER Emelyn Guerra MD LAB - BLOO D BANK ORDERABLES [facility] B[facility] * ANESTHESIA BLOCK PERF (07/18/2012 11:52 AM INDUSTRIAL CHEMISTRY TEACHER) Narrative Corina Adamson CRNA - 07/18/2012 11:52 AM INDUSTRIAL CHEMISTRY TEACHER Corina Adamson CRNA 07/18/2012 11:52 AM Epidural . Location: L3-4 Preanesthetic Checklist Completed: patient identified, IV checked, site marked, risks and benefits discussed, surgical consent, monitors and equipment checked, pre-op evaluation, timeout performed and questions answered / anesthesia plan accepted Epidural . Position for procedure: sitting Prep: sterile gloves, cap, mask, sterile field established, kit and supplies assembled on sterile field and skin prepped with Betadine. Needle: 18 G Tuohy Needle insertion depth: 7 cmLocation: L3-4 Injection technique: loss of resistance and catheter Catheter at skin depth: 10 cm Additional response: Test dose 1.5 % Lidocaine with epinephrine 3 ml--negative Response to Block: Anesthesia level achieved: T10 Start time: 07/18/2012 11:15 AM End time: 07/18/2012 11:20 AM Injection made incrementally with aspirations every 2 mL. Anesthesia level achieved: [id number] response: Test dose 1.5 % Lidocaine with epinephrine 3 ml--negative Patient Care after Block: Instructions to patient: CALENDER ROLL OPERATOR use, expected sensory deficits and activity restrictions Additional Notes: tilt Procedure Note Corina Adamson CRNA - 07/18/2012 11:28 AM CST Epidural . Location: L3-4 Preanesthetic Checklist Completed: patient identified, IV checked, site marked, risks and benefitsdiscussed, surgical consent, monitors and equipment checked, pre-opevaluation, timeout performed and questions answered / anesthesia planaccepted Epidural . Position for procedure: sitting Prep: sterile gloves, cap, mask, sterile field established, kit andsupplies assembled on sterile field and skin prepped with Betadine. Needle: 18 G Tuohy Needle insertion depth: 7 cmLocation: L3-4 Injection technique: loss of resistance and catheter Catheter at skin depth: 10 cm Additional response: Test dose 1.5 % Lidocaine with epinephrine 3ml--negative Response to Block: Anesthesia level achieved: T10 Start time: 07/18/2012 11:15 AM End time: 07/18/2012 11:20 AM Injection made incrementally with aspirations every 2 mL. Anesthesia level achieved: [id number] response: Test dose 1.5 %Lidocaine with epinephrine 3 ml--negative Patient Care after Block: Instructions to patient: CALENDER ROLL OPERATOR use, expected sensory deficits and activityrestrictions Additional Notes: tilt Corina Adamson SAMPLE TAKER OPERATOR-HAY RAKE OPERATOR GENERAL ANES THESIA ORDERABLES * DRUG ABUSE URINE PANEL (07/18/2012 8:58 AM INDUSTRIAL CHEMISTRY TEACHER) [facility] Amphetamines Screen Urine Not Detected Not Detected 07/18/2012 11:14 AM INDUSTRIAL CHEMISTRY TEACHER [facility] Barbiturates Screen Urine Not Detected Not Detected 07/18/2012 11:[address] [facility] Benzodiazepines Screen Urine Not Detected Not Detected 07/18/2012 11:[address] [facility] Cannabinoids Screen Urine Not Detected Not Detected 07/18/2012 11:[address] [facility] Cocaine Screen Urine Not Detected Not Detected 07/18/2012 11:[address] [facility] Opiate Screen Urine Not Detected Not Detected 07/18/2012 11:[address] [facility] Phencyclidine Screen Urine Not Detected Not Detected 07/18/2012 11:[address] [facility] Urine specimen (specimen) URINE / Unknown 07/18/2012 8:58 AM INDUSTRIAL CHEMISTRY TEACHER 07/18/2012 9:06 AM [facility] Narrative [facility] - 07/18/2012 11:14 AM [facility] Medical urine drug screening is only a qualitative method. A Negative result does not prove the absence of a drug or a drug metabolite. The screening methods used are subject to cross-reactivity from other prescription and nonprescription drugs and should be interpreted carefully along with other pertinent clinical information. Drug Screening Test Cutoff Values: AMPHETAMINES 1000 ng/ml BARBITURATES 200 ng/ml BENZODIAZEPINES 200 ng/ml CANNABINOIDS (THC) 50 ng/ml COCAINE 300 ng/ml OPIATES 300 ng/ml PHENCYCLIDINE (PCP) 25 ng/ml Pinky Cormier MD LAB - URINE MINILAB OPERATOR RY ORDERABLES Performing Organization Address City/[facility] Co de Phone Number [facility] [address] [place] [address] * TYPE + SCREEN PANEL (07/18/2012 8:58 AM INDUSTRIAL CHEMISTRY TEACHER) ABO O 07/18/2012 11:[address] [facility] Rh Type Positive 07/18/2012 11:[address] [facility] Antibody Screen Negative 07/18/2012 11:[address] [facility] Miscellaneous samples (specimen) BLOOD SPECIMEN / Unknown 07/18/2012 8:58 AM INDUSTRIAL CHEMISTRY TEACHER 07/18/2012 9:05 AM INDUSTRIAL CHEMISTRY TEACHER Pinky Cormier MD LAB - BLOOD BANK OR DERABLES [facility] * (ABNORMAL) CBC W AUTO DIFFERENTIAL (07/18/2012 8:58 AM [facility]) WBC 13.3(H) 4.4 - 10.7 x10^9/L 07/18/2012 9:[address] [facility] RBC 4.39 3.80 - 5.20 x10^12/L 07/18/2012 9:[address] [facility] Hemoglobin 11.8(L) 12.0 - 15.6 g/dL 07/18/2012 9:[address] [facility] Hematocrit 33.8(L) 35.9 - 45.5 % 07/18/2012 9:[address] [facility] MCV 77.0(L) 80.7 - 98.3 fl 07/18/2012 9:[address] [facility] MCH 26.9 26.7 - 34.0 pg 07/18/2012 9:[address] [facility] MCHC 34.9 30.8 - 35.9 gm/dL 07/18/2012 9:[address] [facility] RDW-CV 12.9 12.1 - 14.9 % 07/18/2012 9:[address] [facility] MPV 10.9 9.4 - 12.9 fl 07/18/2012 9:[address] [facility] nRBC Auto 0 07/18/2012 9:[address] [facility] Hematology Reflex Status Manual Diff to follow (none) 07/18/2012 9:[address] [facility] Platelet Count 225 153 - 416 x10^9/L 07/18/2012 9:[address] [facility] Blood specimen (specimen) BLOOD SPECIMEN / Unknown 07/18/2012 8:58 AM INDUSTRIAL CHEMISTRY TEACHER 07/18/2012 9:06 AM [facility] Pinky Cormier MD LAB - HEMATOLOGY OR DERABLES Performing Organization Address City/State/[facility] Co de Phone Number [facility] [address] [place] [address] * (ABNORMAL) DIFFERENTIAL MANUAL (07/18/2012 8:58 AM [facility]) WBC Auto 13.3(H) 4.4 - 10.7 X(10)9/L 07/18/2012 9:[address] [facility] Neutrophil % Manual 89(H) 44 - 73 % 07/18/2012 9:58 AM INDUSTRIAL CHEMISTRY TEACHER [facility] Lymphocytes % Manual 7(L) 20 - 43 % 07/18/2012 9:58 AM INDUSTRIAL CHEMISTRY TEACHER [facility] Monocytes % Manual 4(L) 5 - 13 % 07/18/2012 9:[address] [facility] Cells Counted 100 # cells 07/18/2012 9:[address] [facility] RBC Morphology Normal 07/18/2012 9:[address] [facility] WBC Morph Normal 07/18/2012 9:58 AM INDUSTRIAL CHEMISTRY TEACHER [facility] Blood specimen (specimen) BLOOD SPECIMEN / Unknown 07/18/2012 8:58 AM INDUSTRIAL CHEMISTRY TEACHER 07/18/2012 9:06 AM INDUSTRIAL CHEMISTRY TEACHER Pinky Cormier MD LAB - HEMATOLOGY OR DERABLES [facility] [address] [place] [address] * GLUCOSE PROTEIN KETONE URINE - POINT OF CAR (06/17/2012 8:10 PM INDUSTRIAL CHEMISTRY TEACHER) Glucose UA negative Negative [facility] Protein UA negative Negative [facility] Ketone UA negative Negative [facility] QC Verified Yes [facility] POC T TESTING Urine specimen (specimen) URINE / Unknown 06/17/2012 8:10 PM INDUSTRIAL CHEMISTRY TEACHER Amy Crockett MD LAB - POINT OF CARE ORDERABLES [place] [address] * US OB <14WKS SINGLE GEST W TRANSVAG (12/07/2011 4:28 PM CDT) Anatomical Region Laterality Modality Abdomen Ultrasound 12/07/2011 9:18 PM CDT Impressions 12/08/2011 8:16 AM CDT SINGLE, LIVE INTRAUTERINE , 7 WEEKS 2 DAYS. Narrative 12/08/2011 8:16 AM CDT OB PELVIC ULTRASOUND, TRANSABDOMINAL AND TRANSVAGINAL WITH DOPPLER DATE: 12/07/2011. INDICATION: Positive test, establish gestational age and viability. FINDINGS: The uterus measures 10.2 x 5.2 x 6.9 cm. There is a single, live intrauterine gestation with age of 7 weeks and 2 days based on crown-rump length. heart rate measures 148 beats per minute. There is no hemorrhage and no visible fibroid. The right ovary contains a corpus luteum cyst measuring 3.1 x 2.9 x 2.8 cm. Overall this ovary measures 3.7 x 4.3 x 3.9 cm and is perfused. The left ovary is seen transabdominally only and measures 2.3 x 1.9 x 1.6 cm, contains a small follicle and is perfused. There is no free fluid. Procedure Note Dylan Byrne MD - 12/08/2011 OB PELVIC ULTRASOUND, TRANSABDOMINAL AND TRANSVAGINAL WITH DOPPLER DATE: 12/07/2011. INDICATION: Positive test, establish gestational age and viability. FINDINGS: The uterus measures 10.2 x 5.2 x 6.9 cm. There is a single, live intrauterine gestation with age of 7 weeks and 2 days based on crown-rump length. heart rate measures 148 beats per minute. There is no hemorrhage and no visible fibroid. The right ovary contains a corpus luteum cyst measuring 3.1 x 2.9 x 2.8 cm. Overall this ovary measures 3.7 x 4.3 x 3.9 cm and is perfused. The left ovary is seen transabdominally only and measures 2.3 x 1.9 x 1.6 cm, contains a small follicle and is perfused. There is no free fluid. IMPRESSION SINGLE, LIVE INTRAUTERINE , 7 WEEKS 2 DAYS. Oleg Magana MD US ORDERABLES
--- OUTSIDE RECORDS SUMMARY | 2024-10-04 13:17 | XMS_ITS | Referral Summary ---
Author Organization [facility] Address [address] 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 This disclosure is being madepursuant to the Care Everywhere program and may not contain all information available regarding this patient. Last updated 18.[facility] [employer] Allergies No known active allergies Medications * Be aware that medications may not be up to date on this document. Alwaysverify current medications with the patient. Medication Sig Dispensed Refills Start Date End Date Status ibuprofen (MOTRIN) 600 MG tablet Take 1 Tab by mouth every 6 hours. 60 Tab 1 07/20/2012 Active docusate sodium (COLACE) 100 MG capsule Take 1-2 Caps by mouth nightly as needed for Constipation. 60 Cap 1 07/20/2012 Active Vit-Fe Fumarate-FA ( VITAMIN WITH IRON) tablet Take 1 Tab by mouth daily with breakfast. 30 Tab 11 07/20/2012 Active ferrous sulfate 325 (65 FE) MG tablet Take 1 Tab by mouth 2 times daily with morning and evening meal. 60 Tab 2 07/20/2012 Active Active Problems Patient Care Coordination No te Formatting of this note migh t be different from the original. 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 Needs PP ppx CXR neg per pink card Immunizations Name Administration Dates Next Due TDAP (7yrs+) 07/19/2012 Social History Tobacco Use Types Packs/Day Years [...] Comments Blood Pressure 124/74 07/20/2012 8:25 AM FAMILY RESOURCE SPECIALIST Pulse 78 07/20/2012 8:25 AM FAMILY RESOURCE SPECIALIST Temperature 37 C (98.6 F) 07/20/2012 8:25 AM FAMILY RESOURCE SPECIALIST Respiratory Rate 18 07/20/2012 8:25 AM FAMILY RESOURCE SPECIALIST Oxygen Saturation 100% 07/18/2012 11:29 AM FAMILY RESOURCE SPECIALIST Inhaled Oxygen Concentration - - Weight 96.7 kg (213 lb 3.2 oz) 07/18/2012 7:41 A M FAMILY RESOURCE SPECIALIST Height 160 cm (5' 3 ) 07/18/2012 7:41 AM FAMILY RESOURCE SPECIALIST Body Mass Index 37.77 07/18/2012 7:41 AM FAMILY RESOURCE SPECIALIST Plan of Treatment Not on file Advance Directives * FULL RESUSCITATION (Latest Code Status on File) Date Activated Date Inactivated Comments 07/18/2012 5:58 PM 07/20/2012 2:27 PM * FULL RESUSCITATION Date Activated Date Inactivated Comments 07/18/2012 8:51 AM 07/18/2012 4:50 PM * FULL RESUSCITATION Date Activated Date Inactivated Comments 07/16/2012 7:25 PM 07/16/2012 9:55 PM
--- OUTSIDE RECORDS SUMMARY | 2024-10-04 13:17 | XMS_ITS | Referral Summary ---
Author Organization [facility] Address [address] [id number] Care Team Providers Care Cattle Dealer Name Role Phone Nabeel Mak Primary Care Provider [phone] Allergies No known active allergies Medications esomeprazole DR (NexIUM) 40 mg capsule Take 1 capsule (40 mg total) by mouth daily before breakfast 30 capsule 0 Active indomethacin (INDOCIN) 25 mg capsuleIndicati ons:Pain Take 1 capsule (25 mg total) by mouth 3 (three) times a day as needed for pain 30 capsule 4 Active Social History Tobacco Use Types Packs/Day Years Used Date Smoking Tobacco: Never Smokeless Tobacco: Never Personal Safety Answer Date Recorded Have you ever been in or are you currently in a harmful physical or emotional relationship or is someone making you feel afraid or unsafe? 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 Gender Identity Not on file Sexual Orientation Not on file Last Filed Vital Signs Vital Sign Reading Time Taken Comments Blood Pressure 113/60 06/06/2024 1:00 AM CDT Pulse 79 06/06/2024 1:00 AM CDT Temperature 36.7 C (98.1 F) 06/05/2024 9:12 PM CDT Respiratory Rate 20 06/06/2024 1:00 AM CDT Oxygen Saturation 100% 06/06/2024 1:00 AM CDT Inhaled Oxygen Concentration - - Weight 86.2 kg (190 lb) 06/05/2024 9:12 PM CDT Height 160 cm (5' 3 ) 06/05/2024 9:12 PM CDT Body Mass Index 33.66 06/05/2024 9:12 PM CDT Plan of Treatment Not on file Insurance [facility] Member Subscriber Plan / Payer (Ef fective 2019-Present) Name:Prabha Lebron Relation to Subscriber:Self Name:Prabha Lebron Payer ID:[id number] (NAIC) Group ID:Not on file Type:MEDICAID RISK OTHER Address: [address] [place], [place] [id number] [place] [address] [facility] Care Teams Cattle Dealer Relationship Specialty Start Date End Date Nabeel Mak PA [address] [facility] [place] [address] PCP - General Physician Client Solutions Director 06/05/24
--- OUTSIDE RECORDS SUMMARY | 2024-10-04 13:17 | XMS_ITS | Data Portability ---
Author Organization HAILEY Ibanez SIChayo Wills Address [address] [facility] [facility] [place] [address] Assessment Encounter Date Assessment Date Assessment LastModified by Organization Details LastModified Time 05/28/2024 05/28/2024 MILAGROS [email or web address] Not available 05/28/2024 17:44:34 Plan of Treatment Reminders Order Date Submit Date Provider Last Modified By Organization Details Last Modified Time Details Appointments None recorded. Lab Mycobacter ium tuberculos is stimulated gamma interferon , qual, blood 2021 [facility], [address] [place] [address], [address], [place], [address], 19:08:10 vitamin B12 + folate, serum or blood 2021 [facility], [address] [place] [address], [address], [place], [address], 19:08:11 BMP, serum or plasma 2021 [facility], [address] [place] [address], [address], [place], [address], 19:08:11 HbA1c (hemoglobi n A1c), blood 2021 [facility], [address] [place] [address], [address], [place], [address], 10/12/202 2 19:08:12 CBC w/ auto diff 2021 022 [facility], [address], [address], [place], [address], 2 19:08:13 CBC 2020 021 [facility], [address], [address], [place], [address], 1 13:10:28 TSH + free T4, serum 2020 021 [facility], [address], [address], [place], [address], 1 13:10:27 vitamin D, 25-hydroxy + 1,25-dihyd raysa, serum 2020 021 [facility], [address], [address], [place], [address], 1 13:10:29 vitamin B12 + folate, serum or blood 2020 021 [facility], [address], [address], [place], [address], 1 13:10:28 tb (M tuberculos is), ifn-gamma hunter, blood 2019 020 [facility], [address], [address], [place], [address], 0 06:23:20 Referral pulmonolog ist referral - Please call patient to schedule appt. Thank you [address] [facility], [address], [place], [address], 0 08:05:55 Procedures None recorded. Surgeries None recorded. Imaging None recorded. Medication Orders amoxicilli n 875 mg-potassi um clavulanat e 125 mg tablet 2023 024 [id number], [address], [place], [place], [id number], 17:43:45 Patient TargetsNo targets recorded. Patient Instructions Encounter Date Encounter Id Patient Instructions Last Modified By Organization Details Last Modified Time 12/30/2020 [id number] sickle cell disease: care instructions si Not available 12/30/2020 17:03:55 05/21/2022 [id number] anemia: care instructions si Not available 05/21/2022 12:49:13 vitamin D si Not available 2021 12:49:13 05/28/2024 [id number] A healthy lifestyle: care instructions [email or web address] Not available 05/28/2024 17:46:57 Acute Sinusitis: Care Instructions [email or web address] Not available 05/28/2024 17:43:45 Reason for Referral Veneer Drier Referral for S olitary nodule of lung Please call patient to schedule appt. Thank you Referring Physician: Praveen Tinoco, Internal Medicine, Encounter Date: 02/05/2020 Results Created Date Observation Date Name Description Value Unit Range Abnormal Flag Note LastModifiedBy Organization Detail LastModifiedTime 02/05/20 20 02/07/2020 tb (M tuber culos is), ifn-g sapphire hunter , blood quantiferon incubation Incuba tion perfor med. Not Available [facility] ([facility]) [address], [place], [address], 02/10/2020 06:23:20 02/05/20 20 02/07/2020 tb (M tuber culos is), ifn-g sapphire hunter , blood quantiferon criteria Commen t The Quant iFERO N-TB Gold Plus resul t is deter mined by subtr actin g the Nil value from eithe r TB antig en (Ag) tube. The mitog en tube serve s as a contr ol for the test. Not Available [facility] ([facility]) [address] [place], [address], 02/10/2020 06:23:20 02/05/20 20 02/09/2020 tb (M tuber culos is), ifn-g sapphire hunter , blood quantiferon TB1 Ag value 0.02 IU/mL Not Available [facility] ([facility]) [address] [place], [address], 02/10/2020 06:23:20 02/05/20 20 02/09/2020 tb (M tuber culos is), ifn-g sapphire hunter , blood quantiferon TB2 Ag value 0.01 IU/mL Not Available [facility] ([facility]) [address] [place], [address], 02/10/2020 06:23:20 02/05/20 20 02/09/2020 tb (M tuber culos is), ifn-g sapphire hunter , blood quantiferon nil value 0.02 IU/mL Not Available [facility] ([facility]) [address] [place], [address], 02/10/2020 06:23:20 02/05/20 20 02/09/2020 tb (M tuber culos is), ifn-g sapphire hunter , blood quantiferon mitogen value 0.05 IU/mL Not Available [facility] ([facility]) [address] [place], [address], 02/10/2020 06:23:20 02/05/20 20 02/09/2020 tb (M tuber culos is), ifn-g sapphire hunter , blood quantiferon- TB gold plus Indete rminat e negati ve abnormal Mitog en (posi tive contr ol) gave low respo nse. This may occur due to subop timal pre-a nalyt ical handl ing. Not Available [facility] ([facility]) [address] [place], [address], 02/10/2020 06:23:20 01/05/20 21 01/05/2021 TSH + free T4, serum TSH 0.742 uIU/m L 0.450- 4.500 Not Available [facility] ([facility]) [address] [place], [address], 01/06/2021 13:10:27 01/05/20 21 01/05/2021 TSH + free T4, serum T4,free(dire ct) 1.20 NG/dL 0.82-1 .77 Not Available [facility] ([facility]) [address] [place], [address], 01/06/2021 13:10:27 01/05/20 21 01/05/2021 CBC WBC 5.5 x10e3 /uL 3.4-10 .8 Not Available [facility] ([facility]) [address] [place], [address], 01/06/2021 13:10:28 01/05/20 21 01/05/2021 CBC RBC 4.38 x10e6 /uL 3.77-5 .28 Not Available [facility] ([facility]) [address] [place], [address], 01/06/2021 13:10:28 01/05/20 21 01/05/2021 CBC hemoglobin 11.6 g/dL 11.1-1 5.9 Not Available [facility] ([facility]) [address] [place], [address], 01/06/2021 13:10:28 01/05/20 21 01/05/2021 CBC hematocrit 35.3 % 34.0-4 6.6 Not Available [facility] ([facility]) [address] [place], [address], 01/06/2021 13:10:28 01/05/20 21 01/05/2021 CBC MCV 81 fL 79-97 Not Available [facility] ([facility]) [address] [place], [address], 01/06/2021 13:10:28 01/05/20 21 01/05/2021 CBC MCH 26.5 pg 26.6-3 3.0 below low normal Not Available [facility] ([facility]) [address] [place], [address], 01/06/2021 13:10:28 01/05/20 21 01/05/2021 CBC MCHC 32.9 g/dL 31.5-3 5.7 Not Available [facility] ([facility]) [address] [place], [address], 01/06/2021 13:10:28 01/05/20 21 01/05/2021 CBC RDW 12.6 % 11.7-1 5.4 Not Available [facility] ([facility]) [address] [place], [address], 01/06/2021 13:10:28 01/05/20 21 01/05/2021 CBC platelets 244 x10e3 /uL 150-45 0 Not Available [facility] ([facility]) [address] [place], [address], 01/06/2021 13:10:28 01/05/20 21 01/05/2021 CBC NRBC LEHR OPERATOR Not Available [facility] ([facility]) [address] [place], [address], 01/06/2021 13:10:28 01/05/20 21 01/05/2021 vitam in B12 + folat e, serum or blood vitamin B12 344 pg/mL 232-12 45 Not Available [facility] ([facility]) [address] [place], [address], 01/06/2021 13:10:28 01/05/20 21 01/05/2021 vitam in B12 + folat e, serum or blood folate (folic acid), serum 17.1 NG/mL >3.0 A serum folat e tyesha ntrat ion of less than 3.1 ng/mL is consi dered to repre sent clini carolyn defic iency . Not Available [facility] ([facility]) [address], [place], [address], 01/06/2021 13:10:28 01/05/20 21 01/05/2021 vitam in D, 25-hy droxy + 1,25- dihyd raysa, serum vitamin D, 25-hydroxy 26.7 NG/mL 30.0-1 00.0 below low normal Vitam in D defic iency has been defin ed by the Insti tute of Medic ine and an Endoc rine Socie ty pract ice guide line as a level of serum 25-OH vitam in D less than 20 ng/mL (1,2) . The Endoc rine Socie ty went on to furth er defin e vitam in D insuf ficie ncy as a level betwe en 21 and 29 ng/mL (2). 1. IOM (Inst itute of Medic ine). 2010. Dieta ry refer ence intak es for calci um and D. Jennifer hickey [place]: The [facility] . 2. Luis Miguel grayson [place], Kriss ott [place], [place] off-F errwilliam i HERNÁNDEZ, et al. Evalu ation , treat ment, and preve ntion of vitam in D defic iency : an Endoc rine Socie ty clini carolyn pract ice guide line. JCEM. 2010; 96(7) :1911 -30. Not Available [facility] ([facility]) [address], [place], [address], 01/06/2021 13:10:29 01/05/20 21 01/06/2021 vitam in D, 25-hy droxy + 1,25- dihyd raysa, serum calcitriol(1 ,25 di-oh vit D) 59.7 pg/mL 19.9-7 9.3 Not Available [facility] ([facility]) [address], [place], [address], 01/06/2021 13:10:29 05/21/2005/22/2022 QUANT IFERO N-TB GOLD PLUS quantiferon incubation Incuba tion perfor med. Not Available [facility] ([facility]) [address], [place], [address], 05/23/2022 19:08:10 05/21/20 22 05/22/2022 QUANT IFERO N-TB GOLD PLUS quantiferon criteria Commen t Quant iFERO N-TB Gold Plus is a quali tativ e indir ect test for M tuber culos is infec tion (incl uding disea se) and is inten ded for use in conju nctio n with risk asses sment , radio graph y, and other medic al and diagn ostic evalu ation s. The Quant iFERO N-TB Gold Plus resul t is deter mined by subtr actin g the Nil value from eithe r TB antig en (Ag) value . The Mitog en tube serve s as a contr ol for the test. Not Available [facility] ([facility]) [address], [place], [address], 05/23/2022 19:08:10 05/21/2005/23/2022 QUANT IFERO N-TB GOLD PLUS quantiferon- TB gold plus Negati ve negati ve No respo nse to M tuber culos is antig ens detec martin. Infec tion with M tuber culos is is unlik best, but high risk indiv idual s shoul d be consi dered for addit ional testi ng (ATS/ IDSA/ CDC Clini carolyn Pract ice Guide lines , 2017) . The refer ence range is an Antig en minus Nil resul t of <0.35 IU/mL . Chemi lumin escen ce immun oassa y metho dolog y Not Available [facility] ([facility]) [address], [place], [address], 05/23/2022 19:08:10 05/21/20 22 05/23/2022 QUANT IFERO N-TB GOLD PLUS quantiferon TB1 Ag value 0.02 IU/mL Not Available [facility] ([facility]) [address] [place], [address], 05/23/2022 19:08:10 05/21/20 22 05/23/2022 QUANT IFERO N-TB GOLD PLUS quantiferon TB2 Ag value 0.02 IU/mL Not Available [facility] ([facility]) [address] [place], [address], 05/23/2022 19:08:10 05/21/20 22 05/23/2022 QUANT IFERO N-TB GOLD PLUS quantiferon nil value 0.01 IU/mL Not Available [facility] ([facility]) [address] [place], [address], 05/23/2022 19:08:10 05/21/20 22 05/23/2022 QUANT IFERO N-TB GOLD PLUS quantiferon mitogen value >10.00 IU/mL Not Available [facility] ([facility]) [address] [place], [address], 05/23/2022 19:08:10 05/21/20 22 05/22/2022 BASIC METAB OLIC PANEL (8) glucose 84 mg/dL 70-99 Ple ase note refer ence inter ariana beba e Not Available [facility] ([facility]) [address] [place], [address], 05/23/2022 19:08:11 05/21/20 22 05/22/2022 BASIC METAB OLIC PANEL (8) BUN 10 mg/dL 6-20 Not Available [facility] ([facility]) [address] [place], [address], 05/23/2022 19:08:11 05/21/20 22 05/22/2022 BASIC METAB OLIC PANEL (8) creatinine 0.69 mg/dL 0.57-1 .00 Not Available [facility] ([facility]) [address], [place], [address], 05/23/2022 19:08:11 05/21/20 22 05/22/2022 BASIC METAB OLIC PANEL (8) eGFR 120 mL/mi n/1.7 3 >59 Not Available [facility] ([facility]) [address], [place], [address], 05/23/2022 19:08:11 05/21/20 22 05/22/2022 BASIC METAB OLIC PANEL (8) BUN/creatini ne ratio 14 9-23 Not Available [facility] ([facility]) [address], [place], [address], 05/23/2022 19:08:11 05/21/20 22 05/22/2022 BASIC METAB OLIC PANEL (8) sodium 140 mmol/ L 134-14 4 Not Available [facility] ([facility]) [address], [place], [address], 05/23/2022 19:08:11 05/21/20 22 05/22/2022 BASIC METAB OLIC PANEL (8) potassium 4.2 mmol/ L 3.5-5. 2 Not Available [facility] ([facility]) [address], [place], [address], 05/23/2022 19:08:11 05/21/20 22 05/22/2022 BASIC METAB OLIC PANEL (8) chloride 101 mmol/ L 96-106 Not Available [facility] ([facility]) [address], [place], [address], 05/23/2022 19:08:11 05/21/20 22 05/22/2022 BASIC METAB OLIC PANEL (8) carbon dioxide, total 26 mmol/ L 20-29 Not Available [facility] ([facility]) [address], [place], [address], 05/23/2022 19:08:11 05/21/20 22 05/22/2022 BASIC METAB OLIC PANEL (8) calcium 9.5 mg/dL 8.7-10 .2 Not Available [facility] ([facility]) [address], [place], [address], 05/23/2022 19:08:11 05/21/20 22 05/22/2022 VITAM IN B12 AND FOLAT E vitamin B12 329 pg/mL 232-12 45 Not Available [facility] ([facility]) [address], [place], [address], 05/23/2022 19:08:11 05/21/2005/22/2022 VITAM IN B12 AND FOLAT E folate (folic acid), serum 15.2 NG/mL >3.0 A serum folat e tyesha ntrat ion of less than 3.1 ng/mL is consi dered to repre sent clini carolyn defic iency . Not Available [facility] ([facility]) [address], [place], [address], 05/23/2022 19:08:11 05/21/2005/22/2022 HEMOG LOBIN A1C hemoglobin A1C 5.5 % 4.8-5. 6 Predi abete s: 5.7 - 6.4 Diabe florian: >6.4 Glyce chloe contr ol for adult s with diabe florian: <7.0 Not Available [facility] ([facility]) [address], [place], [address], 05/23/2022 19:08:12 05/21/20 22 05/22/2022 CBC WITH DIFFE RENTI AL/PL ATELE T WBC 6.6 x10e3 /uL 3.4-10 .8 Not Available [facility] ([facility]) [address], [place], [address], 05/23/2022 19:08:13 05/21/20 22 05/22/2022 CBC WITH DIFFE RENTI AL/PL ATELE T RBC 4.19 x10e6 /uL 3.77-5 .28 Not Available [facility] ([facility]) [address], [place], [address], 05/23/2022 19:08:13 05/21/20 22 05/22/2022 CBC WITH DIFFE RENTI AL/PL ATELE T hemoglobin 11.1 g/dL 11.1-1 5.9 Not Available [facility] ([facility]) [address] [place], [address], 05/23/2022 19:08:13 05/21/2005/22/2022 CBC WITH DIFFE RENTI AL/PL ATELE T hematocrit 33.3 % 34.0-4 6.6 below low normal Not Available [facility] ([facility]) [address] [place], [address], 05/23/2022 19:08:13 05/21/2005/22/2022 CBC WITH DIFFE RENTI AL/PL ATELE T MCV 80 fL 79-97 Not Available [facility] ([facility]) [address] [place], [address], 05/23/2022 19:08:13 05/21/2005/22/2022 CBC WITH DIFFE RENTI AL/PL ATELE T MCH 26.5 pg 26.6-3 3.0 below low normal Not Available [facility] ([facility]) [address] [place], [address], 05/23/2022 19:08:13 05/21/2005/22/2022 CBC WITH DIFFE RENTI AL/PL ATELE T MCHC 33.3 g/dL 31.5-3 5.7 Not Available [facility] ([facility]) [address] [place], [address], 05/23/2022 19:08:13 05/21/20 22 05/22/2022 CBC WITH DIFFE RENTI AL/PL ATELE T RDW 12.8 % 11.7-1 5.4 Not Available [facility] ([facility]) [address], [place], [address], 05/23/2022 19:08:13 05/21/20 22 05/22/2022 CBC WITH DIFFE RENTI AL/PL ATELE T platelets 295 x10e3 /uL 150-45 0 Not Available [facility] ([facility]) [address], [place], [address], 05/23/2022 19:08:13 05/21/2005/22/2022 CBC WITH DIFFE RENTI AL/PL ATELE T neutrophils 71 % notest ab. Not Available [facility] ([facility]) [address], [place], [address], 05/23/2022 19:08:13 05/21/20 22 05/22/2022 CBC WITH DIFFE RENTI AL/PL ATELE T lymphs 20 % notest ab. Not Available [facility] ([facility]) [address], [place], [address], 05/23/2022 19:08:13 05/21/20 22 05/22/2022 CBC WITH DIFFE RENTI AL/PL ATELE T monocytes 6 % notest ab. Not Available [facility] ([facility]) [address], [place], [address], 05/23/2022 19:08:13 05/21/20 22 05/22/2022 CBC WITH DIFFE RENTI AL/PL ATELE T eos 2 % notest ab. Not Available [facility] ([facility]) [address], [place], [address], 05/23/2022 19:08:13 05/21/20 22 05/22/2022 CBC WITH DIFFE RENTI AL/PL ATELE T basos 1 % notest ab. Not Available [facility] ([facility]) [address], [place], [address], 05/23/2022 19:08:13 05/21/2005/22/2022 CBC WITH DIFFE RENTI AL/PL ATELE T neutrophils (absolute) 4.7 x10e3 /uL 1.4-7. 0 Not Available [facility] ([facility]) [address], [place], [address], 05/23/2022 19:08:13 05/21/20 22 05/22/2022 CBC WITH DIFFE RENTI AL/PL ATELE T lymphs (absolute) 1.3 x10e3 /uL 0.7-3. 1 Not Available [facility] ([facility]) [address], [place], [address], 05/23/2022 19:08:13 05/21/2005/22/2022 CBC WITH DIFFE RENTI AL/PL ATELE T monocytes(ab solute) 0.4 x10e3 /uL 0.1-0. 9 Not Available [facility] ([facility]) [address], [place], [address], 05/23/2022 19:08:13 05/21/20 22 05/22/2022 CBC WITH DIFFE RENTI AL/PL ATELE T eos (absolute) 0.1 x10e3 /uL 0.0-0. 4 Not Available [facility] ([facility]) [address], [place], [address], 05/23/2022 19:08:13 05/21/20 22 05/22/2022 CBC WITH DIFFE RENTI AL/PL ATELE T baso (absolute) 0.1 x10e3 /uL 0.0-0. 2 Not Available [facility] ([facility]) [address], [place], [address], 05/23/2022 19:08:13 05/21/20 22 05/22/2022 CBC WITH DIFFE RENTI AL/PL ATELE T immature granulocytes 0 % notest ab. Not Available [facility] ([facility]) [address], [place], [address], 05/23/2022 19:08:13 05/21/20 22 05/22/2022 CBC WITH DIFFE RENTI AL/PL ATELE T immature grans (abs) 0.0 x10e3 /uL 0.0-0. 1 Not Available [facility] ([facility]) [address], [place], [address], 05/23/2022 19:08:13 05/28/20 23 05/28/2023 MAMMO , scree royal, bilat eral No observ ation record ed. [address], [place], [address], 06/21/2023 09:25:48 Result Notes None recorded. Problems Name Problem SNOMED Code Status Onset Date Resolution Date Notes Provider Name and Address Organization Details Recorded Time Acute lower urinary tract infection 977779482 Active Brayden Wilson [place], [place] - [facility] 5 10:13:35 Problem Notes None recorded. Procedures Surgical History None recorded. Imaging Results Imaging Date Name Status LastModified by Organiz ation Details LastModified Time 05/28/2023 MAMMO, screening, bilateral completed [address], [place], [address], 06/21/2023 09:25:48 Procedure Notes None recorded. Medical Equipment None Reported. Allergies No known drug allergies Medications Name Sig Start Date Stop Date Status Note LastModified by Organization Details LastModified Time cyclobenzap rine 10 mg tablet TAKE 1/2 TO 1 TABLET BY MOUTH TWICE DAILY active Not Available Not Available No t Available amoxicillin 500 mg capsule 02/04 completed Not Available Not Available Not Available ibuprofen 800 mg tablet 02/04 completed Not Available Not Available Not Available prednisone 20 mg tablet 03/31 completed Not Available Not Available Not Available acetaminoph en 300 mg-codeine 30 mg tablet 02/04 completed Not Available Not Available Not Available amoxicillin 500 mg tablet 02/04 completed Not Available Not Available Not Available amoxicillin 875 mg tablet 02/04 completed Not Available Not Available Not Available lorazepam 0.5 mg tablet 03/31 completed Not Available Not Available Not Available cyanocobala min (vit B-12) 1,000 mcg/mL injection solution ADMINISTE R 1 ML UNDER THE SKIN EVERY MONTH DIRECTED active Not Available Not Available No t Available Cipro 500 mg tablet Take 1 tablet every 12 hours by oral route. 02/04 completed Not Available Not Available Not Available promethazin e 25 mg tablet TAKE 1 TABLET BY MOUTH EVERY 4-6 HOURS NEEDED NAUSEA 05/21 completed Not Available Not Available Not Available omeprazole 20 mg capsule,del ayed release Take 1 capsule every day by oral route as directed for 90 days. 05/21 completed Not Available Not Available Not Available montelukast 10 mg tablet Take 1 tablet every day by oral route as directed for 90 days. 05/21 completed Not Available Not Available Not Available aspirin 81 mg tablet Take 1 tablet every day by oral route. 05/21 completed Not Available Not Available Not Available ergocalcife rol (vitamin D2) 1,250 mcg (50,000 unit) capsule TAKE 1 CAPSULE BY MOUTH EVERY WEEK DIRECTED active Not Available Not Available No t Available ibuprofen 600 mg tablet TAKE 1 TABLET BY MOUTH EVERY 6-8 HOURS NEEDED active Not Available Not Available No t Available albuterol sulfate HFA 90 mcg/actuati on aerosol inhaler INHALE 2 PUFFS BY MOUTH EVERY 4 HOURS NEEDED FOR SHORTNESS OF BREATH OR WHEEZING active Not Available Not Available No t Available amoxicillin 875 mg-potassiu m clavulanate 125 mg tablet Take 1 tablet every 12 hours by oral route for 7 days. active Not Available Not Available No t Available Symbicort 80 mcg-4.5 mcg/actuati on HFA aerosol inhaler INHALE 1 PUFF BY MOUTH EVERY 12 HOURS active Not Available Not Available No t Available cholecalcif reynaldo (vitamin D3) 1,250 mcg (50,000 unit) capsule TAKE 1 CAPSULE BY MOUTH EVERY MONTH DIRECTED active Not Available Not Available No t Available Dulera 200 mcg-5 mcg/actuati on HFA aerosol inhaler INHALE 1 PUFF BY MOUTH TWICE DAILY active Not Available Not Available No t Available Aerochamber Plus Flow-Vu USE DIRECTED active Not Available Not Available No t Available PrePlus 27 mg iron-1 mg tablet 02/04 completed Not Available Not Available Not Available Belgica 0.25 mg-35 mcg tablet TAKE 1 TABLET BY MOUTH EVERY DAY active Not Available Not Available No t Available Fluarix Quad 9200-2864 (PF) 60 mcg (15 mcg x 4)/0.5 mL IM syringe 02/04 completed Not Available Not Available Not Available Vitals Date Recorded Body temperature Body height Body mass index (BMI) Body weight Heart rate Oxygen saturation Oxygen saturation in Arterial blood by Pulse oximetry Systolic blood pressure Diastolic blood pressure Provider Name and Address Organization Details Last Updated DateTime 9 98.6 [degF] 91.44 cm 86.8 kg/m2 00596.7 8 g 74 /min 98 % 98 % 118 mm[Hg] 64 mm[Hg] Elvie Richards [facility] 9 18:00:32 Date Recorded Body height Body mass index (BMI) Body weight Body temperature Oxygen saturation Oxygen saturation in Arterial blood by Pulse oximetry Heart rate Systolic blood pressure Diastolic blood pressure Provider Name and Address Organization Details Last Updated DateTime 0 160.66 cm 30.9 kg/m2 60530.2 6 g 98.3 [degF] 99 % 99 % 81 /min 114 mm[Hg] 76 mm[Hg] Eliseo Villasenor [place] - [facility] 0 15:01:05 Date Recorded Body height Body mass index (BMI) Body weight Body temperature Oxygen saturation Oxygen saturation in Arterial blood by Pulse oximetry Heart rate Systolic blood pressure Diastolic blood pressure Provider Name and Address Organization Details Last Updated DateTime 2 163.83 cm 36.3 kg/m2 00244.6 4 g 97.8 [degF] 98 % 98 % 68 /min 110 mm[Hg] 80 mm[Hg] Eliseo Villasenor MA [facility] 2 12:22:29 Date Recorded Body height Body mass index (BMI) Body weight Oxygen saturation Oxygen saturation in Arterial blood by Pulse oximetry Heart rate Systolic blood pressure Diastolic blood pressure Provider Name and Address Organization Details Last Updated DateTime 4 163.83 cm 36.8 kg/m2 45449.1 4 g 99 % 99 % 91 /min 118 mm[Hg] 78 mm[Hg] Patricia JERO Pringle [facility] 17:19:38 Social History Question Answer Notes LastModified by Organizat ion Details LastModified Time Tobacco Smoking Status Never Smoker Elvie childs, [facility] 01/14/2017 18:39:55 What Is Your Level Of Alcohol Consumption? None [email or web address] Information not available 02/05/2020 What Was The Date Of Your Most Recent Tobacco Screening? 05/28/2024 Information not available 05/28/2024 Has Tobacco Cessation Counseling Been Provided? No Information not available 05/28/2024 Sex: Unknown Functional Status None recorded. Mental Status None recorded. Family History Relationship Description Onset Age of this Age Resolved Age Notes LastModified by Organization Details LastModified Time Brother Asthma [email or web address] Not availab le 02/05/2020 14:45:52 Brother Hypertensive disorder [email or web address] Not available 01/11 14:46:51 Sister Blood coagulation disorder [email or web address] Not available 01/11 14:46:04 Sister Diabetes mellitus bfalconerma Not available 01/11 14:46:31 Sister Anemia bfalconerma Not availabl e 02/05/2020 14:47:23 Sister Heart murmur [email or web address] Not av ailable 02/05/2020 14:47:52 Sister Pulmonary embolism bfalconerma Not available 01/11 14:48:43 Mother Cerebrovascu lar accident bfalconerma Not available 0 02/05/2020 14:46:14 Mother Migraine bfalconerma Not availa ble 02/05/2020 14:47:04 Father Diabetes mellitus bfalconerma Not available 01/11 14:46:31 Father Hypertensive disorder bfalconerma Not available 01/11 14:46:51 Son Hypertensive disorder bfalconerma Not available 01/11 14:46:51 Medical History Condition Response Acid Reflux (GERD) Y Anemia Y Asthma Y Gynecological History Statement/Question Response Date of LMP 05/14/2022 Obstetrics History GPAL:G 0 P 0 0 0 0 Immunizations Vaccine Type Date Status Note Provider Nam e and Address Organization Details Recorded Time Influenza, split virus, quadrivalent, preservative 9 completed JERO [place], [place] - [facility] 02/05/2020 14:54:53 varicella 7 completed Not Available [facility] 08/29/2019 02:43:05 varicella 9 completed Not Available [facility] 08/29/2019 02:43:07 Past Encounters Encounter ID Performer Location Encounter Start Date Encounter Closed Date Diagnosis/Indication Diagnosis SNOMED-CT Code Diagnosis ICD10 Code Diagnosis Note [id number] [facility] [address] [facility] [address] [place] [address] 01/14/2017 18:09:44 01/16/2017 10:55:11 Tuberculosis screening 582021540 Z11.1 pt reports hx of false pos. History an d physical examination, [facility] 73792368 Z02.0 negative assessment . no restrictio ns indicated. varicella given per pa per vo [id number] [facility] [address] [place] [address] 04/09/2019 13:09:41 04/10/2019 09:37:17 Active or passive immunization 617646108 Z23 varicella given per pa per vo [id number] [facility] [address] [place] [phone] 02/05/2020 14:29:00 02/08/2020 06:59:00 Solitary nodule of lung 987723724 R91.1 Discussed with patient, referral is made, also TB test ordered. On prednisolo n. history of asthma. she will tape off. Due to the concern of TB. [id number] MD Armando Mathias (Adult Med) [address] [place] [phone] 12/30/2020 16:53:57 01/02/2021 11:28:47 Sickle cell trait 44391610 D57.3 Will order as she asks. History of asthma 917489 007 Z87.09 Still has inhaler. [id number] MD Armando Mathias (Adult Med) [address] [place] [phone] 05/21/2022 11:54:35 05/22/2022 08:33:47 History and physical examination, pre-employment 401681535 Z02.1 Normal PE , see PE above. Will have TB blood test, and other s listed as listed vinnie. Anemia 594760682 D64.9 History of anemia, and sick el cell trait. Cobalamin deficiency 190 468926 E53.8 History of B12 deficiency , but in consistent medication Vitamin D deficiency 347 68728 E55.9 Vit min D level was low. Lesion of lung 199317599 R91.8 Has been referred to lung specialist , but she nerve went, due to responsibi lity of mother of 4 children. Nonspecifi c tuberculin test reaction 589648456 R76.11 Will test again. [id number] [facility]IT[facility] XAVIER (Adult Med) [address] [place] [phone] 05/28/2024 17:14:11 06/02/2024 13:32:44 Acute sinusitis 33861602 J01.90 Swollen lymph nodes to the left post auricularS tart amoxicilli n tablet twice dailyRecom mended tylenol if she develops feversCont inue Sudafed as needed for congestion Obesity 265742798 E66.9 BMI 36.8 Health Concerns Section Related Observation LastModified by Organization Detai ls LastModified Time None Recorded Concern Status LastModified by Organization Details LastModified Time None Recorded Advance Directives Directive None Recorded Payers Encounter Date Sequence Insurance Name Policy Number Policy Curry Covered Member ID Curry Member ID Guarantor Name 04/09/2019 1 [facility] PRIOR TO 02/09/2021 (MEDICAID REPLACEMENT - HMO) Prabha Lebron [id number] Prabha Lebron 02/05/2020 1 [facility] PRIOR TO 02/09/2021 (MEDICAID REPLACEMENT - HMO) Prabha Lebron [id number] Prabha Lebron 12/30/2020 1 [facility] PRIOR TO 02/09/2021 (MEDICAID REPLACEMENT - HMO) Prabha Lebron [id number] Prabha Lebron 05/21/2022 1 [facility] ON OR AFTER 02/09/21 (MEDICAID REPLACEMENT - HMO) Prabha Lebron [id number] Prabha Lebron 05/28/2024 1 [facility] ON OR AFTER 02/09/21 (MEDICAID REPLACEMENT - HMO) Prabha Lebron [id number] Prabha Lebron Notes Date Note Type Note Provider Name and Address Organization Details Recorded Time 04/09/2019 text/html Pt presents to clinic requesting varicella vaccine. Pt denies nausea, vomiting, fever, chills, rash, diarrhea, constipation and dysuria. 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 NKDA, got omeprazole for acid reflux and heart burn improved. Praveen Tinoco MD Attn: [address] [facility], [place], [address], [facility] 02/05/2020 15:25:10 12/30/2020 text/html Phone visit, due to computer was down earier and kaminski virus pandemic, she understood and agreed , went to ER weeks ago, she felt neck lymphadenopathy, but had negative CT of soft tissue, history of sick cell trait, losing hair, fatigue lately, no fever, wants blood tests eg. CBC. vitamin B12, D and thyroid function, this office will ask for the copies of her ER medical record. NKDA. Praveen Tinoco MD Attn: [address] [facility], [place], [address], [facility] 12/30/2020 17:41:10 05/21/2022 text/html Office visit, history of sickle cell trait, B12 , Vitamin D deficiency and anemia. wants PE for work and blood work, also had exposed to TB, got 6 months INH prophylactic medication , requires chest x ray /5 years, Praveen Tinoco MD Attn: [address] [facility], [place], [address], [facility] 05/21/2022 13:04:34 05/28/2024 text/html 34 y.o. female who come in with swollen nodules behind the left ear. Pt states that she first noticed them 2 days ago and they have been getting more painful and swollen since. She has been sick with sinus pressure, headache and nasal congestion for the past two days. Took sudafed for the first time today to help with her nasal congestion. Denies cough, fever, SOB, abdominal pain, or N/V/D. ZAC SEPULVEDA PA-C Attn: [address] [place], [address], [facility] 05/28/2024 17:47:13 OBGyn Episode No OBEpisode recorded.
--- OUTSIDE RECORDS SUMMARY | 2024-10-04 13:17 | XMS_ITS | Data Portability ---
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 Patient will come back in a year unless there are new symptoms. Not available 02/25/2024 10:33:42 Plan of Treatment Reminders Order Date Submit Date Provider Last Modified By Organization Details Last Modified Time Details Appointments None recorded. Lab test, urine 2023 024 [place], [address], [address], [place], [address], 14:45:04 hsv-2 igg Ab, serum [address] [facility] (Lab), [address] [place], [address], 4 21:13:37 hbcab (hepatitis B core Ab) igm, serum [address] [facility] (Lab), [address] [place], [address], 4 21:13:37 HBsAg (hepatitis B surface Ag), serum [address] [facility] (Lab), [address] [place], [address], 4 21:13:36 hepatitis C virus Ab, serum [address] [facility] (Lab), [address], [place], [address], 4 21:13:36 HIV 1+2 AB + HIV 1 p24 Ag, qualitative immunoassay , serum [address] [facility] (Lab), [address], [place], [address], 4 21:13:36 RPR (rapid plasma reagin), serum [address] [facility] (Lab), [address], [place], [address], 4 21:13:37 hbcab (hepatitis B core Ab) igm, serum [address] [facility] (Lab), [address], [place], [address], 4 21:21:09 HBsAg (hepatitis B surface Ag), serum [address] [facility] (Lab), [address], [place], [address], 4 21:21:07 hepatitis C virus Ab, serum [address] [facility] (Lab), [address], [place], [address], 4 21:21:08 unlisted lab - HIV 1/2 antigen/ant ibody, reflex confirmatio n [address] [facility] (Lab), [address], [place], [address], 4 21:21:07 RPR (rapid plasma reagin), serum [address] [facility] (Lab), [address] [place], [address], 4 21:21:09 cortisol, serum or plasma [address] [facility] (Lab), [address], [place], [address], 4 21:21:08 Referral None recorded. Procedures None recorded. Surgeries None recorded. Imaging None recorded. Medication Orders None recorded. Patient TargetsNo targets recorded. Patient InstructionsNo instructions recorded. Reason for Referral None Reported. Results Created Date Observation Date Name Description Value Unit Range Abnormal Flag Note LastModifiedBy Organization Detail LastModifiedTime 11/26/19 24 11/26/2023 CT/GC AND TRICH OMONA S VAGIN DELL (RRNA ), SWAB chlamydia trachomatis, PCR Negati ve negati ve Not Available [facility] (Lab) [address], [place], [address], 11/27/2023 12:00:22 11/26/19 24 11/26/2023 CT/GC AND TRICH OMONA S VAGIN DELL (RRNA ), SWAB neisseria gonorrhoeae, PCR Negati ve negati ve Not Available [facility] (Lab) [address], [place], [address], 11/27/2023 12:00:22 11/26/19 24 11/26/2023 CT/GC AND TRICH OMONA S VAGIN DELL (RRNA ), SWAB trichomonas vaginalis ribosomal RNA (rrna) Negati ve negati ve Not Available [facility] (Lab) [address] [place], [address], 11/27/2023 12:00:22 11/26/19 24 11/26/2023 HEPAT ITIS B SURFA CE ANTIG EN hepatitis B surface antigen Non-re active non-re active This assay was perfo rmed using [employer] ratio n reage nts and test kits. Value s obtai shanelle with other assay metho ds or kits canno t be used inter yoder eably . Not Available [facility] (Lab) [address], [place], [address], 11/27/2023 21:21:07 11/26/19 24 11/26/2023 HIV 1/2 ANTIG EN/AN TIBOD Y, REFLE X CONFI RMATI ON HIV antigen/anti body Nonrea ctive nonrea ctive HIV-1 antig en and HIV-1 /HIV- 2 antib odies were not detec martin. No labor atory evide nce of HIV infec tion. Not Available [facility] (Lab) [address], [place], [address], 11/27/2023 21:21:07 11/26/19 24 11/26/2023 HEPAT ITIS C ANTIB CORINNA SCREE N, REFLE X TO CONFI RMATI ON hepatitis C antibody Non-re active non-re active Antib odies to HCV Not Detec martin, does not exclu de the possi bilit y of expos ure to HCV. Not Available [facility] (Lab) [address], [place], [address], 11/27/2023 21:21:08 11/26/19 24 11/26/2023 NATALIA HERNANDEZ M cortisol 13.5 ug/dL R-REF ERENC E RANGE S: A.M. : 6.70 - 22.60 ug/dL - P.M. : <10.0 0 ug/dL Not Available [facility] (Lab) [address] [place], [address], 11/27/2023 21:21:08 11/26/19 24 11/26/2023 RPR SCREE N, REFLE X TITER /CONF IRMAT ION RPR screen Nonrea ctive nonrea ctive Not Available [facility] (Lab) [address], [place], [address], 11/27/2023 21:21:09 11/26/19 24 11/26/2023 HEPAT ITIS B CORE, IGM hepatitis B core IgM antibody Negati ve negati ve Not Available [facility] (Lab) [address], [place], [address], 11/27/2023 21:21:09 01/28/20 24 01/28/2024 CT/GC AND TRICH OMONA S VAGIN DELL (RRNA ), URINE chlamydia trachomatis, PCR Negati ve negati ve Not Available [facility] (Lab) [address], [place], [address], 01/29/2024 11:44:58 01/28/20 24 01/28/2024 CT/GC AND TRICH OMONA S VAGIN DELL (RRNA ), URINE neisseria gonorrhoeae, PCR Negati ve negati ve Not Available [facility] (Lab) [address], [place], [address], 01/29/2024 11:44:58 01/28/20 24 01/28/2024 CT/GC AND TRICH OMONA S VAGIN DELL (RRNA ), URINE trichomonas vaginalis ribosomal RNA (rrna) Negati ve negati ve Not Available [facility] (Lab) [address], [place], [address], 01/29/2024 11:44:58 01/28/20 24 01/28/2024 HEPAT ITIS B SURFA CE ANTIG EN hepatitis B surface antigen Non-re active non-re active This assay was perfo rmed using [employer] reage nts and test kits. Value s obtai shanelle with other assay metho ds or kits canno t be used inter yoder eably . Not Available [facility] (Lab) [address], [place], [address], 01/29/2024 21:13:36 01/28/20 24 01/28/2024 HIV 1/2 ANTIG EN/AN TIBOD Y, REFLE X CONFI RMATI ON HIV antigen/anti body Nonrea ctive nonrea ctive HIV-1 antig en and HIV-1 /HIV- 2 antib odies were not detec martin. No labor atory evide nce of HIV infec tion. Not Available [facility] (Lab) [address], [place], [address], 01/29/2024 21:13:36 01/28/20 24 01/28/2024 HEPAT ITIS C ANTIB CORINNA SCREE N, REFLE X TO CONFI RMATI ON hepatitis C antibody Non-re active non-re active Antib odies to HCV Not Detec martin, does not exclu de the possi bilit y of expos ure to HCV. Not Available [facility] (Lab) [address], [place], [address], 01/29/2024 21:13:36 01/28/20 24 01/28/2024 RPR SCREE N, REFLE X TITER /CONF IRMAT ION RPR screen Nonrea ctive nonrea ctive Not Available [facility] (Lab) [address], [place], [address], 01/29/2024 21:13:37 01/28/20 24 01/28/2024 HERPE S SIMPL EX VIRUS TYPE 2 SPECI FIC AB, IGG herpes simplex virus 2 IgG Negati ve negati ve Not Available [facility] (Lab) [address], [place], [address], 01/29/2024 21:13:37 01/28/20 24 01/28/2024 HERPE S SIMPL EX VIRUS TYPE 2 SPECI FIC AB, IGG herpes simples virus 2 IgG, quant <0.2 ai 0.0-0. 8 Not Available [facility] (Lab) [address], [place], [address], 01/29/2024 21:13:37 01/28/20 24 01/28/2024 HEPAT ITIS B CORE, IGM hepatitis B core IgM antibody Negati ve negati ve Not Available [facility] (Lab) [address] [place], [address], 01/29/2024 21:13:37 02/25/20 24 02/25/2024 IMAGE GUIDE D PAP AND HPV REGAR DLESS image guided Pap, HPV regardless of Pap result SEE RESULT S BELOW abnormal CASE REPOR T: Cytol ogy Gynec ologi carolyn Repor t Case: [id number] Autho neal shin Provi eda: Dereck Estrada MD Colle cted: 02/24 1038 Order ing Locat ion: [place] Path[facility] log[facility] Recei yang: 02/25 0137 First Scree n: Jonn Celis, CT Patho logis t: Helga Breen MD Speci men: Mitch paige Pap - Image d, Cervi x STATE MENT OF ADEQU ACY: Satis facto ry for evalu ation Trans forma tion zone compo nent prese nt ----- ----- ----- ----- ----- ----- ----- ----- ----- ----- ----- ----- ----- ----- ----- ----- ----- ---- FINAL DIAGN OSIS: Epith elial Cell Abnor malit y, Squam ous Cell: Low Grade Squam ous Intra epith elial Lesio n (LSIL ). Elect kallie kerns by Helga Breen MD on 2023 at 10:17 AM ----- ----- ----- ----- ----- ----- ----- ----- ----- ----- ----- ----- ----- ----- ----- ----- ----- ---- HPV RESUL TS: HPV mRNA E6/E7 : Posit aubrie - HPV mRNA Detec mratin NOTE: This high risk HPV mRNA assay detec ts fourt een high- risk HPV types (16, 18, 31, 33, 35, 39, 45, 51, 52, 56, 58, 59, 66, 68) witho ut diffe renti ation . COMME NT: This speci men was revie wed by a Cytot echno logis t and/o r Patho logis t (as indic ated in this repor t) after evalu ation using the Thinp rep Imagi ng Syste m. CLINI CAROLYN INFOR MATIO N: Menst rual Statu s: LMP (if appli cable ): Clini carolyn Histo ry/Pr eviou s Pap: Type of Neopl osman (if appli cable ): Signi fican t Clini carolyn Findi ngs: Other Histo ry: Hormo ariella (if appli cable ): SUGGE STED FOLLO W-UP: Follo w up as warra nted, based on curre nt guide lines and indiv idual patie nt consi derat ions. Not Available [facility] (Lab) [address], [place], [address], 03/02/2024 11:22:09 04/02/20 24 04/02/2024 SURGI CAROLYN PATHO LOGY surgical pathology SEE RESULT S BELOW CASE REPOR T: Surgi carolyn Patho logy Repor t Case: [id number] Autho neal shin Provi eda: Dereck Estrada MD Colle cted: 04/02 1434 Order ing Locat ion: [place] [facility] [place] Recei yang: 04/03 0242 Patho logis t: Ang Ceballos rd, MD Speci mens: A) - Endoc ervix , ECC B) - Cervi x, Cx Bx ----- ----- ----- ----- ----- ----- ----- ----- ----- ----- ----- ----- ----- ----- ----- ----- ----- ---- FINAL DIAGN OSIS: A. Endoc ervix ; curet tage: Benig n endoc ervic al and ectoc ervic al mucos a, negat aubrie for dyspl osman B. Cervi x; biops y: Focal low-g rade squam ous intra epith elial lesio n (ROSHAN- 1) Benig n endoc ervic al mucos a Elect kallie diaz d by Ang Ceballos rd, MD on 2023 at 12:35 PM ----- ----- ----- ----- ----- ----- ----- ----- ----- ----- ----- ----- ----- ----- ----- ----- ----- ---- CLINI CAROLYN INFOR MATIO N: Human Papil vitaliy Deoxy ribon uclei c acid detec martin MICRO SCOPI C DESCR IPTIO N: A micro scopi c exami natio n was perfo rmed. GROSS DESCR IPTIO N: A. Endoc ervix . The speci men is label ed with the patie nt's name, barbara fajardoi cs and ECC . Recei yang in forma ashley is a 0.8 x 0.4 x 0.1 [address] gate of minut e white tissu e and mucus . It is submi tted all in one casse tte. Gross ed by Aleisha Childers on B. Cervi x. The speci men is label ed with the patie nt's name, chelsieog raphi cs and Cx Bx . Recei yang in forma ashley is are two fragm ents of white -valdez tissu e measu ring 0.3 and 0.4 cm. The entir e speci men is submi tted in one casse tte. Gross ed by Aleisha Childers on Not Available [facility] (Lab) [address], [place], [address], 04/03/2024 13:39:28 04/02/20 24 04/02/2024 pregn saqib test, urine HCG negati ve Not Available [place] [address] [place], [address], 04/02/2024 14:44:56 Result Notes None recorded. Problems Name Problem SNOMED Code Status Onset Date Resolution Date Notes Provider Name and Address Organization Details Recorded Time Finding of contents of cervix 182409707 Completed 201602/23/2021 Weeks of gestatio n of pregnanc y not specifie d;Practi ce ID: 0001 [facility] 12:46:36 Antenata l screenin g Completed 201602/23/2021 Encounte r for antenata l screenin g for nuchal transluc ency;Pra ctice ID: 0001 [facility] 12:46:24 Gestatio n period, 38 weeks [id number] Completed 201802/23/2021 38 weeks gestatio n of pregnanc y;Practi ce ID: 0001 [facility] 12:46:49 Lochia finding Completed 201802/23/2021 Encounte r for routine postpart um follow-u p;Practi ce ID: 0001 [facility] 12:46:[address] Concept Completed 201802/23/2021 Encounte r for surveill ance of other contrace ptives;P ractice ID: 0001 [facility] 12:47:26 Normal pregnanc y in multigra lalita [id number] 4106 Completed 201602/23/2021 Encounte r for suprvsn of normal pregnanc y, first trimeste r;[facility]i ce ID: 0001 [facility] 12[facility]47:02 Antenata l screenin g for malforma tion Completed 201702/23/2021 Encounte r for antenata l screenin g for malforma tions;Pr actice ID: 0001 Lucero childs, [facility] 12:46:25 False labor before 37 complete d weeks of gestatio n [id number] 010649 Completed 201702/23/2021 False labor before 37 complete d weeks of gest, second tri;Prac demar ID: 0001 Lucero childs, [facility] 12:46:35 Gestatio n period, 21 weeks [id number] Completed 201702/23/2021 21 weeks gestatio n of pregnanc y;Practi ce ID: 0001 Lucero childs, [facility] 12:46:41 Prematur e labor [id number] Completed 201702/23/2021 labor without delivery , second trimeste r;Practi ce ID: 0001 Lucero childs, [facility] 12:47:08 Gestatio n period, 27 weeks [id number] Completed 201702/23/2021 27 weeks gestatio n of pregnanc y;Practi ce ID: 0001 Lucero childs, [facility] 12:46:[address] Concept Completed 201702/23/2021 Decrease d movement s, second trimeste r, unsp;Pra ctice ID: 0001 Lucero childs, [facility] 12:47:21 Gestatio n period, 33 weeks [id number] Completed 201702/23/2021 33 weeks gestatio n of pregnanc y;Practi ce ID: 0001 Lucero childs, [facility] 12:46:[address] Concept Completed 201702/23/2021 Decrease d movement s, third trimeste r, unsp;Pra ctice ID: 0001 Lucero childs, [facility] 12:47:23 Gestatio n period, 36 weeks [id number] Completed 201702/23/2021 36 weeks gestatio n of pregnanc y;Practi ce ID: 0001 Lucero childs, [facility] 12:46:47 Pregnanc y, childbir th and puerperi um finding Completed 201702/23/2021 Oth pregnanc y related conditio ns, third trimeste r;Practi ce ID: 0001 Lucero childs, [facility] 12:46:30 Gestatio n period, 39 weeks [id number] Completed 201702/23/2021 39 weeks gestatio n of pregnanc y;Practi ce ID: 0001 Lucero childs, [facility] 12:46:51 Term pregnanc y delivere d [id number] Completed 201702/23/2021 Encounte r for full-ter m uncompli cated delivery ;Practic e ID: 0001 Lucero childs, [facility] 12:47:31 Single live [id number] Completed 201702/23/2021 Single live ;Pr actice ID: 0001 Lucero childs, [facility] 12:47:[address] Concept Completed 201702/23/2021 Encntr for information security associate exam (general ) (routine ) w/o abn findings ;Practic e ID: 0001 Lucero childs, [facility] 12:47:24 Uterine size for dates discrepa ncy Completed 201702/23/2021 Uterine size-mahamed e discrepa ncy, first trimeste r;Practi ce ID: 0001 Lucero childs, [facility] 12:47:35 Gestatio n period, 11 weeks [id number] Completed 201702/23/2021 11 weeks gestatio n of pregnanc y;Practi ce ID: 0001 [facility], [facility] 12:46:40 Insuffic ient weight gain of pregnanc y [id number] Completed 201802/23/2021 Low weight gain in pregnanc y, third trimeste r;Practi ce ID: 0001 [facility], [facility] 12:46:55 Gestatio n period, 35 weeks [id number] Completed 201802/23/2021 35 weeks gestatio n of pregnanc y;Practi ce ID: 0001 [facility], [facility] 12:46:46 Vaginiti s and vulvovag initis Completed 201302/23/2021 Vaginiti s and vulvovag initis, unspecif ied;Dane rded Elsewher e: No Locat ion: Judy palacio [facility] S ource: E[facility] [employer] maylin: N Practi ce ID: 0001 Zeyad lable Time: 05:45:00 PM [facility] 12:47:37 Syphilis test finding [id number] Completed 201702/23/2021 Encntr screen for infectio ns w sexl mode of transmis s;Record ed Elsewher e: No Locat ion: Judy palacio [facility] S ource: E[facility] [employer] maylin: N Practi ce ID: 0001 Zeyad lable Time: 04:00:00 PM [facility] 12:47:29 Maternal care for diminish ed movement s Completed 201402/23/2021 Decrease d movement s, affectin g manageme nt of mother, antepart um conditio n or complica tion;Rec orded Elsewher e: No Locat ion: Jduy palacio [facility] S ource: EHR [employer] maylin: N Milagrosti ce ID: 0001 Zeyad lable Time: 02:00:00 PM [facility] 1 12:47:00 Routine antenata l care Completed 201402/23/2021 Supervis ion of other normal pregnanc y;Record ed Elsewher e: No Locat ion: Judy palacio [facility] S ource: E[facility] [employer] maylin: N Milagrosti ce ID: 0001 Zeyad lable Time: 06:00:00 PM [facility] 1 12:47:13 Screenin g for malignan t neoplasm of cervix Completed 201602/23/2021 Screenin g for cervical ca;Recor ded Elsewher e: No [facility] S ource: E[facility] [employer] maylin: N Milagrosti ce ID: 0001 Zeyad lable Time: 03:00:00 PM [facility] 1 12:47:16 Labor and delivery complica martin by heart rate anomaly [id number] Completed 201402/23/2021 ABNORMAL ITY IN HEART RATE OR RHYTHM, ANTEPART UM;Recor ded Elsewher e: No Locat ion: Judy palacio [facility] S ource: EHR [employer] maylin: N Milagrosti ce ID: 0001 Zeyad lable Time: 02:00:00 PM [facility] 1 12:46:57 Body mass index 30+ - obesity [id number] Completed 201602/23/2021 Body mass index (BMI) 32.0-32. 9, adult;Re corded Elsewher e: No [facility] S ource: EHR [employer] maylin: N Milagrosti ce ID: 0001 Zeyad lable Time: 01:45:00 PM [facility] 1 12:46:27 Pregnanc y test negative [id number] Completed 201602/23/2021 Encounte r for pregnanc y test, result negative ;Recorde d Elsewher e: No Locat ion: [facility] S ource: EHR [employer] maylin: N Milagrosti ce ID: 0001 Zeyad lable Time: 02:30:00 PM [facility] 12:47:06 Infectio n screenin g Completed 201702/23/2021 Encounte r for screenin g for oth infec/pa rastc diseases ;Recorde d Elsewher e: No Locat ion: [facility] S ource: EHR [employer] maylin: N Practi ce ID: 0001 Zeyad lable Time: 04:00:00 PM [facility] 12:46:52 Procedur e Completed 201602/23/2021 Encounte r for checking , reinsert ion or removal of implanta ble subderma l contrace ptive;Re corded Elsewher e: No Locat ion: [facility] S ource: EHR [employer] maylin: N Milagrosti ce ID: 0001 Zeyad lable Time: 08:30:00 AM [facility] 12:47:11 Insertio n of subcutan eous contrace ptive Completed 201802/23/2021 Insertio n of implanta ble subderma l contrace ptive;Re corded Elsewher e: No Locat ion: [facility] S ource: EHR [employer] maylin: N Practi ce ID: 0001 Zeyad lable Time: 11:15:00 AM [facility] 12:46:54 Breast lump [id number] Completed 201602/23/2021 Lump in breast;R ecorded Elsewher e: No Locat ion: [facility] S ource: EHR [employer] maylin: N Milagrosti ce ID: 0001 Zeyad lable Time: 02:30:00 PM [facility] 1 12:46:28 Secondar y amenorrh ea [id number] Completed 201602/23/2021 Secondar y amenorrh ea;Recor ded Elsewher e: No Locat ion: [facility] S ource: EHR [facility] maylin: N Milagrosti ce ID: 0001 Zeyad lable Time: 01:45:00 PM [facility] 1 12:47:17 Postpart um care Completed 201402/23/2021 Routine postpart um follow-u p;Record ed Elsewher e: No Locat ion: [facility] S ource: [facility] maylin: N Debra ce ID: 0001 Zeyad lable Time: 08:30:00 AM [facility] 1 12:47:05 Rubella screenin g status [id number] Completed 201702/23/2021 Encounte r for antenata l screenin g, unspecif ied;Dane rded Elsewher e: No Locat ion: [facility] S ource: EHR [employer] maylin: N Milagrosti ce ID: 0001 Zeyad lable Time: 02:45:00 PM [facility] 12:47:14 Ultrason ography Completed 201302/23/2021 Antenata l screenin g for malforma tion using ultrason ics;Dane rded Elsewher e: No Locat ion: [facility] S ource: EHR [employer] maylin: N Milagrosti ce ID: 0001 Zeyad lable Time: 03:00:00 PM [facility] 12:47:32 Congenit al malforma tion [id number] Completed 201302/23/2021 Antenata l screenin g for malforma tion using ultrason ics;Dane rded Elsewher e: No Locat ion: Anngarry hakeem [facility] S ource: EHR [employer] maylin: N Milagrosti ce ID: 0001 Zeyad lable Time: 03:00:00 PM [facility] 12:46:32 Poor growth affectin g manageme nt [id number] Completed 201402/23/2021 Poor growth, affectin g manageme nt of mother, antepart um conditio n or complica tion;Rec orded Elsewher e: No Locat ion: [facility] hakeem [facility] S ource: EHR [employer] maylin: N Milagrosti ce ID: 0001 Zeyad lable Time: 04:30:00 PM [facility] 1 12:47:03 Urinary tract infectio us disease [id number] Completed 201302/23/2021 Urinary Tract Infectio n;Record ed Elsewher e: No Locat ion: [facility] S ource: EHR [employer] maylin: N Milagrosti ce ID: 0001 Zeyad lable Time: 05:45:00 PM [facility] 12:47:34 Gestatio n less than 9 weeks [id number] Completed 201602/23/2021 Less than 8 weeks gestatio n of pregnanc y;Record ed Elsewher e: No Locat ion: [facility]ns[facility] hakeem [facility] S ource: EHR [employer] maylin: N Practi ce ID: 0001 Zeyad lable Time: 08:30:00 AM [facility] 12:46:38 Subcutan eous contrace ptive implant present [id number] Completed 201402/23/2021 Surveill ance of implanta ble subderma l contrace ptive;Re corded Elsewher e: No Locat ion: Judy hakeem [facility] S ource: EHR [employer] maylin: N Milagrosti ce ID: 0001 Zeyad lable Time: 09:45:00 AM Lucero Kapadia null, [facility] 12:47:27 Primigra lalita [id number] Completed 201402/23/2021 Supervis ion of normal first pregnanc y;Practi ce ID: 0001 Lucero childs, [facility] 12:47:10 Delivery normal [id number] Completed 201402/23/2021 Normal delivery ;Practic e ID: [id number] Lucero Kapadia null, [facility] 12:46:33 Problem Notes None recorded. Procedures Surgical History Date Name Laterality Status Provider Name and Address Organization Details Recorded Time 04/02/20 24 Colposcopy completed Keegan Estrada MD [address], [place], [address], [facility] 04/02/2024 16:14:41 02/25/20 24 Date of Last Pap Smear completed Callie Martinez [facility] 04/02/2024 14:44:06 08/15/19 23 [facility]poscopy [facility] [address], [place], [address], [facility] 08/20/2022 08:06:33 08/15/19 23 Colposcopy completed Callie Martinez [facility] 01/28/2024 12:37:12 08/15/19 23 Colposcopy completed Callie Martinez [facility] 02/25/2024 10:36:37 08/01/20 22 Control Implant Insertion completed Ruth Wooten DID[facility]- [address], [place], [address], [facility] 08/01/2022 17:05:19 02/16/20 20 Nexplanon Removal completed Keegan Estrada MD [address], [place], [address], [facility] 02/16/2020 17:58:18 Imaging Results None recorded. Procedure Notes None recorded. Medical Equipment None Reported. Allergies No known drug allergies Medications Name Sig Start Date Stop Date Status Note LastModified by Organization Details LastModified Time cyclobenz aprine 10 mg tablet TAKE 1/2 TO 1 TABLET BY MOUTH TWICE DAILY active Not Available Not Available No t Available amoxicill in 500 mg capsule 01/14 completed Not Available Not Available Not Available clindamyc in HCl 300 mg capsule TAKE ONE CAPSULE BY MOUTH EVERY 6 HOURS active Not Available Not Available No t Available ibuprofen 800 mg tablet 01/14 completed Not Available Not Available Not Available Monistat 7 2 % vaginal cream insert 1 applicat orful by vaginal route every day at bedtime 10/22 completed Prescrib ed Elsewher e: No Locat ion: [facility] odify By: gurjit Hernandez r DateTime : 06/25/20 14 10:45:21 AM Not Available Not Available Not Available prednison e 20 mg tablet 02/11 completed Not Available Not Available Not Available Zithromax Z-Cornell 250 mg tablet take 2 tablet by oral route every day for 1 day then 1 tablet (250 mg) by oral route once daily for 4 days 12/03 completed Prescrib ed Elsewher e: No Locat ion: [facility] odify By: jericho Rubalcava er DateTime : 10/28/19 15 03:23:30 PM Not Available Not Available Not Available bacitraci n 500 unit/gram topical ointment APPLY TO CLEAN DRY SKIN TWICE DAILY FOR AT LEAST ONE WEEK active Not Available Not Available No t Available lorazepam 0.5 mg tablet 02/11 completed Not Available Not Available Not Available Flagyl 500 mg tablet take 1 tablet by oral route 2 times every day 12/03 completed Prescrib ed Elsewher e: No Locat ion: [facility] odify By: jericho Rubalcava er DateTime : 10/27/19 15 09:45:00 AM Not Available Not Available Not Available cyanocoba gary (vit B-12) 1,000 mcg/mL injection solution ADMINIST ER 1 ML UNDER THE SKIN EVERY MONTH DIRECTED active Not Available Not Available No t Available promethaz ine 25 mg tablet TAKE 1 TABLET BY MOUTH EVERY 4-6 HOURS NEEDED NAUSEA 07/25 completed Not Available Not Available Not Available Slow Fe 47.5 mg iron tablet,ex tended release take 1 tablet by Oral route every day for 30 days 08/24 completed Prescrib ed Elsewher e: No Locat ion: [facility] odify By: omedical Encount er DateTime : 07/26/20 01:58:43 PM Not Available Not Available Not Available omeprazol e 20 mg capsule,d elayed release 07/25 completed Not Available Not Available Not Available cephalexi n 500 mg tablet take 1 tablet by oral route every 6 hours 06/23 completed Prescrib ed Elsewher e: No Locat ion: [facility] odify By: raheel hernandez DateTime : 04/06/20 03:30:00 PM Not Available Not Available Not Available monteluka st 10 mg tablet TAKE 1 TABLET BY MOUTH EVERY DAY DIRECTED 07/25 completed Not Available Not Available Not Available mupirocin 2 % topical ointment APPLY 1 GRAM TO THE AFFECTED AREA FOUR TIMES DAILY FOR 7 DAYS active Not Available Not Available No t Available ergocalci ferol (vitamin D2) 1,250 mcg (50,000 unit) capsule TAKE 1 CAPSULE BY MOUTH EVERY WEEK DIRECTED active Not Available Not Available No t Available ibuprofen 600 mg tablet TAKE 1 TABLET BY MOUTH EVERY 6-8 HOURS NEEDED active Not Available Not Available No t Available polyethyl leona glycol 3350 17 gram/dose oral powder Take 17 g every day by oral route with meals for 90 days. 01/27 completed Not Available Not Available Not Available albuterol sulfate HFA 90 mcg/actua tion aerosol inhaler INHALE 2 PUFFS BY MOUTH EVERY 4 HOURS NEEDED FOR SHORTNES S OF BREATH OR WHEEZING active Not Available Not Available No t Available amoxicill in 875 mg-potass ium clavulana te 125 mg tablet TAKE 1 TABLET BY MOUTH EVERY 12 HOURS FOR 7 DAYS active Not Available Not Available No t Available Calcium-5 00 500 mg (as calcium carbonate 1,250 mg) tablet 10/22 completed Prescrib ed Elsewher e: Yes Loca tion: [facility] odify By: vargas Hernandez r DateTime : 04/06/20 14 03:30:00 PM Not Available Not Available Not Available iron 325 mg (65 mg iron) tablet take 1 tablet by oral route every day 05/04 completed Prescrib ed Elsewher e: Yes Loca tion: [facility] odify By: gladys Hernandez r DateTime : 01/24/20 19 11:15:00 AM Not Available Not Available Not Available iron 10/19 completed Not Available Not Available Not Available multivita min 10/19 completed Not Available Not Available Not Available Symbicort 80 mcg-4.5 mcg/actua tion HFA aerosol inhaler INHALE 1 PUFF BY MOUTH EVERY 12 HOURS active Not Available Not Available No t Available cholecalc iferol (vitamin D3) 1,250 mcg (50,000 unit) capsule TAKE 1 CAPSULE BY MOUTH EVERY MONTH DIRECTED active Not Available Not Available No t Available Dulera 200 mcg-5 mcg/actua tion HFA aerosol inhaler INHALE 1 PUFF BY MOUTH TWICE DAILY 01/27 completed Not Available Not Available Not Available Aerochamb er Plus Flow-Vu USE DIRECTED 03/19 completed Not Available Not Available Not Available Gummies Children Multivita min chewable tablet 05/04 completed Prescrib ed Elsewher e: Yes Loca tion: [facility] odify By: vargas Hernandez r DateTime : 10/23/19 19 08:30:00 AM Not Available Not Available Not Available Gummies Children Multivita min 02/15 completed Not Available Not Available Not Available Nexplanon 68 mg subdermal implant Inject 1 implant every day by subcutan eous route. 2021 active Not Available Not Available Not Avai lable One Daily 27 mg iron-800 mcg tablet take 1 tablet by oral route every day 12/03 completed Prescrib ed Elsewher e: Yes Loca tion: [facility] odify By: jericho Rubalcava er DateTime : 04/06/20 14 03:30:00 PM Not Available Not Available Not Available Belgica 0.25 mg-35 mcg tablet TAKE 1 TABLET BY MOUTH EVERY DAY 03/19 completed Not Available Not Available Not Available Vitals Date Recorded Body height Body mass index (BMI) Body weight Systolic blood pressure Diastolic blood pressure Provider Name and Address Organization Details Last Updated DateTime 11/26/2023 157.48 cm 39.3 kg/m2 23093.64 g 122 mm[Hg] 81 mm[Hg] Lucero Zuluaga [facility] 4 10:51:48 Date Recorded Body height Body mass index (BMI) Body weight Systolic blood pressure Diastolic blood pressure Provider Name and Address Organization Details Last Updated DateTime 01/28/2024 157.48 cm 39.1 kg/m2 10187.77 g 117 mm[Hg] 74 mm[Hg] [facility] 4 12:31:31 Date Recorded Body height Body mass index (BMI) Body weight Systolic blood pressure Diastolic blood pressure Provider Name and Address Organization Details Last Updated DateTime 02/25/2024 157.48 cm 39.3 kg/m2 30336.36 g 130 mm[Hg] 81 mm[Hg] [facility] 4 10:34:22 Date Recorded Body height Body mass index (BMI) Body weight Systolic blood pressure Diastolic blood pressure Provider Name and Address Organization Details Last Updated DateTime 04/02/2024 157.48 cm 39 kg/m2 96474.17 g 119 mm[Hg] 75 mm[Hg] [facility] 4 14:43:39 Social History Question Answer Notes LastModified by Organizat ion Details LastModified Time Tobacco Smoking Status [facility]/15[facility]2020 11:44:38 What Is Your Level Of Alcohol Consumption? Occasional [email or web address] Information not available 02/12/2020 Are You Blind Or Do You Have Difficulty Seeing? No Information not available 02/23/2021 In The 14 Days Before Symptom Onset, Have You Had Close Contact With A Laboratory-confir med COVID-19 While That Case Was Ill? No Information not available 03/19/2023 In The 14 Days Before Symptom Onset, Have You Had Close Contact With A Person Who Is Under Investigation For COVID-19 While That Person Was Ill? No Information not available 03/19/2023 Have You Been To An Area Known To Be High Risk For COVID-19? No Information not available 03/19/2023 Are You Deaf Or Do You Have Serious Difficulty Hearing? No Information not available 02/23/2021 What Type Of Diet Are You Following? REGULAR Information not available 02/23/2021 Do You Or Have You Ever Used E-cigarettes Or Vape? Never Used Electronic Cigarettes [email or web address] Information not available 02/12/2020 What Was The Date Of Your Most Recent Tobacco Screening? 02/12/2020 [email or web address] Information not available 02/12/2020 Do You Use Your Seat Belt Or Car Seat Routinely? Yes Information not available 02/23/2021 Do You Have Smoke And Carbon Monoxide Detectors In Your Home? Yes Information not available 02/23/2021 Do You Or Have You Ever Used Smokeless Tobacco? Never Used Smokeless Tobacco [email or web address] Information not available 02/12/2020 How Much Tobacco Do You Smoke? No [email or web address] Information not available 02/12/2020 Do You Feel Stressed (tense, Restless, Nervous, Or Anxious, Or Unable To Sleep At Night)? [id number] Information not available 02/23/2021 Do You Use Sunscreen Routinely? Yes Information not available 02/23/2021 Sex: Unknown Functional Status Question Answer Note LastModified by Organizat ion Details LastModified Time Do you have difficulty walking or climbing stairs? No Information not available 07/25/2022 Are you able to walk? [email or web address] Information not available 02/23/2021 Are you able to care for yourself? Yes Information not available 07/25/2022 Do you have difficulty dressing or bathing? No Information not available 07/25/2022 What is your exercise level? Occasional [email or web address] Information not available 02/12/2020 Mental Status None recorded. Family History Relationship Description Onset Age of this Age Resolved Age Notes LastModified by Organization Details LastModified Time Father Diabetes mellitus [email or web address] Not available 2019 11:43:56 Father Psychotic disorder Head injury [email or web address] Not available 07/25/2022 16:16:36 Father Sickle cell trait [email or web address] Not available 2019 11:44:25 Sister Diabetes mellitus [email or web address] Not available 2019 11:43:57 Sister Sickle cell trait [email or web address] Not available 2019 11:44:25 Brother Sickle cell trait [email or web address] Not available 2019 11:44:25 Brother Hypertensive disorder [email or web address] Not available 2019 11:44:36 Medical History Condition Response Allergies (Food, seasonal, environmental ) N Other N Drug/Latex Allergies/Reactions N Breast Cancer N Blood Transfusion N Lung Disease N Dermatologic Disorders N Defects or Inherited Disease N Breast Problem N Gestational Diabetes N Hematologic disorders N Anesthesia Complications N History of STI Y Deep Vein Thrombosis N Polycystic ovary syndrome N Anxiety Disorder N Autoimmune disease N Arthritis N Polyps N Infertility N History of abnormal pap Y Acid Reflux (GERD) N Cancer N Varicosities N Stroke N Neurologic/Epilepsy N Endometriosis N High Cholesterol N Headaches N Fibromyalgia N Kidney Disease N Heart Problems N Thyroid Problems N Kidney or Bladder Problems N GI Problems N Eating Disorder N Anemia N Art (IVF or FET) N Psychiatric Illness N Ovarian Cancer N Diabetes N Pulmonary (TB, Asthma) N Hepatitis/Liver Disease N No Past Medical History N Eczema N Urinary Tract Infection N Abuse/Domestic Violence N Asthma N Trauma/Violence N Depression/ depression N Heart Disease N Pre-Eclampsia N Hypertension N Osteoporosis N Thrombophilias N Gynecological History Statement/Question Response Abnormal Pap Y Flow Moderate Date of LMP 03/29/2024 Was last menstrual period normal Y STIs/STDs Y HPV Vaccine N Colposcopy 08/15/2022 Duration of Flow (days) 3 Current Control Method Implant Are cycles usually normal Y Frequency of Cycle (Q days) 28 Sexually Active? Y Menses Monthly Y Age of first menstrual cycle 13 Date of Last Pap Smear 02/25/2024 Sexual Problems? N Desired Control Method Implant LMP Definite Obstetrics History GPAL:G 4 P 4 0 0 4 Type Value Full Term 4 Living 4 Total 4 Past Encounters Encounter ID Performer Location Encounter Start Date Encounter Closed Date Diagnosis/Indication Diagnosis SNOMED-CT Code Diagnosis ICD10 Code Diagnosis Note [id number] Ruth Wooten [facility] [address],[place] [address] 01/15/2020 11:38:03 01/15/2020 13:53:15 Mastodynia of left breast [id number] 1069035 N64.4 Since issue has persisted >6mos we agreed to pursue breast US. Order given. Will review results & determine next steps in plan. Time spent in visit is a total of 15 mins with at least 50% of visit consisting of counseling and review of plan of care. [id number] Keegan Estrada MD [facility] [address],[place] [address] 02/12/2020 12:21:33 02/15/2020 20:33:22 Gynecologic examination 38248751 Z01.419 This patient is here for her annual exam. A thorough history was taken. A physical exam was performed. Age appropriat e routine health screening was ordered, performed, and discussed. Recommende d testing was ordered. She was asked to follow up in one year. She will be informed of any test results. [id number] Keegan Estrada MD [facility] [address],[place] [address] 02/16/2020 17:05:16 02/17/2020 15:23:00 Contraception care management 003449580 Z30.9 Nexplanon removed without complicati ons. She tolerated procedure well. The patient is going to use natural family planning. [id number] Ruth Wooten [facility] [address],[place] [address] 07/25/2022 16:00:24 07/25/2022 16:49:17 Gynecologic examination 62599284 Z01.419 Take Calcium with Vitamin D 1200mg daily if not receiving in daily diet. It is strongly advised to have an annual flu shot and up can obtain at most pharmacies . If you have not had a TDap shot in the last 10 years you should obtain one as well. Discussed with patient & provided with informatio n regarding Gardisil vaccine to prevent the 4 strains for HPV that cause cervical cancer if under age 26. Encourage safe sexual practices, to use condoms and limit partners if not already in a monogamous relationsh ip. Do monthly self breast exams. Have mammogram yearly or every other year depending on family history. BRCA testing is now available for patients with strong genetic history of female cancer. If interested contact the office. Engage in daily exercise of low impact aerobic exercise 45-60 minutes 4-5 times weekly. Avoid tobacco and illicit drugs as well as using moderation with alcohol intake less than 1-2 8 oz beverages daily. This lifestyle behavior pattern will lead to less health conditions and longer life span. If BMI greater than 25 weight watchers or dietary consult advised. Patient received above instructio ns, and questions have been answered. If you have any questions please call or respond to this email. Patient was made aware of the patient portal and may obtain a paper copy of today's plan if desired. Pap/hpv sent STD Screen sent Genetic Screen discussed Colon Screen na Dexa Screen na Routine Labs STD requested orderdUS breast pain ordered -left side Contracept ion care management [id number] Z30.9 Nexplanon scheduleWi ll stay on BCP's until nexplanon placed. Discussed all control options in depth and pt is interested in Nexplanon. Discussed all risks and benefits including irregular unschedule d bleeding. Pt verbalized understand ing and would like to proceed. Pain of breast 95978388 N64.4 Left sideBreast painUnable to find abnormalit y on exam but tender to touch upper outer quadrant Sexually t ransmitted infectious disease 3402567 A64 [id number] JASMIN [facility] [address],[place] [address] 08/01/2022 15:32:58 08/01/2022 17:58:19 Screening procedure 21540387 Z13.9 Contracept ion care management 797367860 Z30.9 Insertion of subcutaneous contraceptive 136499763 Z30.9 Patient is here currently on her menses. She was given all the r/b/a of placement of the Nexplanon device and has signed the consent. She is fully aware of all possible side effects of the device and has decided to move forward with placement. Insertion site was cleansed with betadine and 3cc lidocaine used for anesthesia . Device was placed in the left arm per usual fashion w/o complicati on and patient instructed to f/u in one month or earlier if there are any si/sx of infection or hypersensi tivity at the insertion site RTO x 3mos or at Colposcopy Low grade squamous intraepithelial lesion on cervical Papanicolaou smear 9432968584 9105 R87.612 Counseled on Pap/HPV guidelines /Testing/R esults with understand ing verbalized .All questions answered to patient satisfacti on. Booklet & additional resources regarding pap smear/HPV/ Pap results given. [email or web address] ov/types/c ervical/un derstandin g-abnormal -hpv-and-p ap-test-re sults/unde rstanding- cervical-c hanges.pdf rec colposcopy will schedule [id number] Ruth Wooten [facility] [address],[place] [address] 08/15/2022 14:44:02 08/17/2022 14:35:04 Screening procedure 43824886 Z13.9 Low grade squamous intraepithelial lesion on cervical Papanicolaou smear 0874438983 9105 R87.612 See procedure notes.Post -procedure instructio ns reviewed with understand ing verbalized .Will contact with results & next steps in plan of care. Counseled on Pap/HPV guidelines /Testing/R esults with understand ing verbalized .All questions answered to patient satisfacti on. Booklet & additional resources regarding pap smear/HPV/ Pap results given. [email or web address] ov/types/c ervical/un derstandin g-abnormal -hpv-and-p ap-test-re sults/unde rstanding- cervical-c hanges.pdf rec colposcopy will schedule [id number] [facility] [address],[place] [address] 03/19/2023 15:06:44 03/19/2023 15:42:18 Sexually transmitted infectious disease 3221415 A64 New sexual partner.Up dating std screening Time spent in visit is a total of 15 mins with at least 50% of visit consisting of counseling and review of plan of care. Vitamin D deficiency 347 07519 E55.9 Yearly neema D check Vitamin B1 2 deficiency (non anemic) 58301836 E53.8 Yearly Vit B12 chk Adult heal th examination 506283066 Z00.00 Yearly labs updatedLow libidoLost spouse at the beginning of this past year. [id number] Melisa Ahn [facility] [address],[place] [address] 03/21/2023 17:02:01 03/22/2023 14:44:40 Pain in pelvis 27962204 R10.2 [id number] Ruth Wooten [facility] [address],[place] [address] 04/04/2023 10:21:18 04/04/2023 11:50:37 Dyspareunia 78362085 N94.10 Exam is +PDF which i likely the reason for pain with sex.She will call to schedule her PT pelvic floor ref. Follow up as needed. Time spent in visit is a total of 26 mins with at least 50% of visit consisting of counseling and review of plan of care. Laboratory test result abnormal 038577520 R89.9 R/P labs and if further evaluation is required will need specialist referrals. 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 Chronic id iopathic constipation 06307827 K59.04 Keep stools soft to help constipati on which can also help pelvic floor muscles. Vitamin D deficiency 347 62085 E55.9 Will keep up on neema D supps since winter is anandin g [id number] Ruth Wooten [facility] [address],[facility] [place] [address] 05/31/2023 12:13:18 05/31/2023 13:06:20 Fibrocystic changes of bilateral breasts [id number] 7397473 N60.11 N60.12 Today we reviewed her recent results from diag mammo for complaints of mastodynia and nodules. Her results were reviewed in full with questions answered and understand ing verbalized .It is recommende d she continue to perform monthly SBE's and routine yearly screenings starting age 40yo or as needed. No further questions. Time spent in visit is a total of 15 mins with at least 50% of visit consisting of counseling and review of plan of care. [id number] [facility] [address],[place] [address] 11/26/2023 10:45:56 11/26/2023 11:09:27 Sexually transmitted infectious disease 6231513 A64 New sexual partner.Up dating std screening Time spent in visit is a total of 15 mins with at least 50% of visit consisting of counseling and review of plan of care. Fatigue 28065468 R53.83 E66.9 [id number] Keegan Estrada MD [facility] [address],[place] [address] 01/28/2024 12:23:13 01/28/2024 13:19:24 Sexually transmitted infectious disease 8806268 A64 33-year-ol d female who presents for STD screening / testing. She declined pelvic exam today. She is having her menses. We agreed to test her urine for gonorrhea chlamydia and Trichomona s. She will also have blood drawn for hepatitis, herpes, syphilis, HIV. [id number] Keegan Estrada MD [facility] [address],[place] [address] 02/25/2024 10:21:58 02/25/2024 11:45:50 Dyspareunia 08235453 N94.10 TO see pelvic floor therapy Tenderness at various sites and pelvic exam, pain with deep thrust dyspareuni a and introducti on of the penis. Gynecologi c examination 09808354 Z01.419 Z11.51 This patient is here for her annual exam. A thorough history was taken. A physical exam was performed. Age appropriat e routine health screening was ordered, performed, and discussed. Recommende d testing was ordered. She was asked to follow up in one year. She will be informed of any test results. [id number] Keegan Estrada MD [facility] [address],[facility] [place] [address] 04/02/2024 14:28:19 04/02/2024 16:31:02 Screening procedure 20617971 Z13.9 Abnormal c ervical Papanicolaou smear 504983728 R87.619 this patient is a 34-year-ol d female who underwent colposcopi c examinatio n. She tolerated well. There were biopsies taken at 12 and 6:00 a.m.. ECC was performed. There was a satisfacto ry exam with aceto-whit e epithelium present. [id number] Keegan Estrada MD [facility] [address] [address] 08/19/2024 15:23:41 08/20/2024 19:15:32 Health Concerns Section Related Observation LastModified by Organization Detai ls LastModified Time None Recorded Concern Status LastModified by Organization Details LastModified Time None Recorded Advance Directives Directive None Recorded Payers Encounter Date Sequence Insurance Name Policy Number Policy Curry Covered Member ID Curry Member ID Guarantor Name 11/26/2023 1 [facility] ON OR AFTER 02/09/21 (MEDICAID REPLACEMENT - HMO) Prabha Lebron [id number] Prabha Lebron 01/28/2024 1 [facility] ON OR AFTER 02/09/21 (MEDICAID REPLACEMENT - HMO) Prabha Lebron [id number] Prabha Lebron 02/25/2024 1 [facility] ON OR AFTER 02/09/21 (MEDICAID REPLACEMENT - HMO) Prabha Lebron [id number] Prabha Lebron 04/02/2024 1 [facility] ON OR AFTER 02/09/21 (MEDICAID REPLACEMENT - HMO) Prabha Lebron [id number] Prabha Lebron 08/19/2024 1 [facility] ON OR AFTER 02/09/21 (MEDICAID REPLACEMENT - HMO) Prabha Lebron [id number] Prabha Lebron Notes Date Note Type Note Provider Name and Address Organization Details Recorded Time 11/26/2023 text/html Here today for updated std screen and also requests updated cortisol levels for extreme stress, fatigue, obesity. Neg pain of abd/pelvis/flankNeg urinary sx'sNeg GI sx'sNeg N/V/F/C/DNeg Vag d/c, odor, irritation, itching JASMIN Briseno- [address], [place], [address], [facility] 11/26/2023 11:07:13 01/28/2024 text/html 33-year-old fema arley who presents for STD screening / testing. She declined pelvic exam today. She is having her menses. We agreed to test her urine for gonorrhea chlamydia and Trichomonas. She will also have blood drawn for hepatitis, herpes, syphilis, HIV. Keegan Estrada MD [address], [place], [address], [facility] 01/28/2024 13:09:17 02/25/2024 text/html Annual GYNReport ed bypatient.History:n o gynecologic complaints Menstrual cycle:Normal menses Urinary symptoms:No hematuria; No incontinence Vulva:No genital lesion Vagina:Normal vaginal discharge Breast:No breast pain; No breast lump Current Contraception:Satis fied with current contraception; Subdermal contraceptive implant Sexual complaints:No sexual complaints; No pain during intercourse Menopausal Symptoms:No menopausal symptoms Psychological symptoms:Depression ;Anxiety; needs s follow up appt for treatment Preventive measures:Encourage self breast examination; Encourage regular exercise Keegan Estrada MD [address], [place], [address], [facility] 02/25/2024 11:44:13 04/02/2024 text/html this patient is a [age] -year-old female presents for colposcopic examination. She understands the procedure. Has been explained to her in detail. She understands the risks, benefits, and alternatives. She has completed the informed consent process and is ready to proceed. Keegan Estrada MD [address], [place], [address], [facility] 04/02/2024 16:15:42 OBGyn Episode Ob Episode Information Episode Created Date Number of Fetuses Patient Bloodtype Patient rh Status Prepregnancy Weight lbs Domestic Partner Domestic Partner Phone Father Name Director Of Program Management Status 01/15/20 20 1 CLOSED Fetus Data First Name Last Name Admitted to NICU Weight (g) Sex Living Outcome Pediatric Complications Fetus ID Race Codes Race Delivery Type 3146.56 7704 F Full Term 2012 Vaginal Delivery Alexandre Calculation Initial Alexandre Date Initial Exam Date Initial Exam Provider Initial Ultrasound Date Last Menstrual Period Date Ultra Sound Weeks Gestation 0 Eighteen To Twenty Week Alexandre Update Ultra Sound Date Fundal Height At Umbil Quickening Date Ultra Sound Latest Weeks Gestation Final Alexandre Confirmed By Final Alexandre Confirmed Date Final Alexandre Date Ultra Sound Latest Days Gestation 0 0 Menstrual History Last Menstrual Date Menses Monthly On Bcp Conception Prior Menses Frequency Hcg Plus Date Menarche Onset Age Delivery Information Delivery Date Delivery Type Labor Anesthesia Weeks Gestation Incision Type Labor Labor Length Hrs Delivered By Post Complications Tubal Sterilization Discharge Date Comments 2 39 Discharge Information Feeding Method Contraceptive Method Maternal HG B and HCT Levels Ob Episode Information Episode Created Date Number of Fetuses Patient Bloodtype Patient rh Status Prepregnancy Weight lbs Domestic Partner Domestic Partner Phone Father Name Director Of Program Management Status 01/15/20 1 CLOSED Fetus Data First Name Last Name Admitted to NICU Weight (g) Sex Living Outcome Pediatric Complications Fetus ID Race Codes Race Delivery Type 3486.76 1704 M Full Term 2010 Vaginal Delivery Alexandre Calculation Initial Alexandre Date Initial Exam Date Initial Exam Provider Initial Ultrasound Date Last Menstrual Period Date Ultra Sound Weeks Gestation 0 Eighteen To Twenty Week Alexandre Update Ultra Sound Date Fundal Height At Umbil Quickening Date Ultra Sound Latest Weeks Gestation Final Alexandre Confirmed By Final Alexandre Confirmed Date Final Alexandre Date Ultra Sound Latest Days Gestation 0 0 Menstrual History Last Menstrual Date Menses Monthly On Bcp Conception Prior Menses Frequency Hcg Plus Date Menarche Onset Age Delivery Information Delivery Date Delivery Type Labor Anesthesia Weeks Gestation Incision Type Labor Labor Length Hrs Delivered By Post Complications Tubal Sterilization Discharge Date Comments 8 39.3 Discharge Information Feeding Method Contraceptive Method Maternal HG B and HCT Levels Ob Episode Information Episode Created Date Number of Fetuses Patient Bloodtype Patient rh Status Prepregnancy Weight lbs Domestic Partner Domestic Partner Phone Father Name Director Of Program Management Status 01/15/20 20 1 CLOSED Fetus Data First Name Last Name Admitted to NICU Weight (g) Sex Living Outcome Pediatric Complications Fetus ID Race Codes Race Delivery Type 2891.64 9 F Full Term 2011 Vaginal Delivery Alexandre Calculation Initial Alexandre Date Initial Exam Date Initial Exam Provider Initial Ultrasound Date Last Menstrual Period Date Ultra Sound Weeks Gestation 0 Eighteen To Twenty Week Alexandre Update Ultra Sound Date Fundal Height At Umbil Quickening Date Ultra Sound Latest Weeks Gestation Final Alexandre Confirmed By Final Alexandre Confirmed Date Final Alexandre Date Ultra Sound Latest Days Gestation 0 0 Menstrual History Last Menstrual Date Menses Monthly On Bcp Conception Prior Menses Frequency Hcg Plus Date Menarche Onset Age Delivery Information Delivery Date Delivery Type Labor Anesthesia Weeks Gestation Incision Type Labor Labor Length Hrs Delivered By Post Complications Tubal Sterilization Discharge Date Comments 5 40 Discharge Information Feeding Method Contraceptive Method Maternal HG B and HCT Levels Ob Episode Information Episode Created Date Number of Fetuses Patient Bloodtype Patient rh Status Prepregnancy Weight lbs Domestic Partner Domestic Partner Phone Father Name Director Of Program Management Status 02/12/20 20 1 CLOSED Fetus Data First Name Last Name Admitted to NICU Weight (g) Sex Living Outcome Pediatric Complications Fetus ID Race Codes Race Delivery Type 3175.14 4 M Full Term 2698 Vaginal Delivery Alexandre Calculation Initial Alexandre Date Initial Exam Date Initial Exam Provider Initial Ultrasound Date Last Menstrual Period Date Ultra Sound Weeks Gestation 0 Eighteen To Twenty Week Alexandre Update Ultra Sound Date Fundal Height At Umbil Quickening Date Ultra Sound Latest Weeks Gestation Final Alexandre Confirmed By Final Alexandre Confirmed Date Final Alexandre Date Ultra Sound Latest Days Gestation 0 0 Menstrual History Last Menstrual Date Menses Monthly On Bcp Conception Prior Menses Frequency Hcg Plus Date Menarche Onset Age Delivery Information Delivery Date Delivery Type Labor Anesthesia Weeks Gestation Incision Type Labor Labor Length Hrs Delivered By Post Complications Tubal Sterilization Discharge Date Comments 9 Discharge Information Feeding Method Contraceptive Method Maternal HG B and HCT Levels
--- OUTSIDE RECORDS SUMMARY | 2024-10-04 13:17 | XMS_ITS | Clinical Summary ---
Author Organization [facility] Address [address] [place] [address] Care Team Providers Care Director Of Education And Training Name Role Phone Unavailable Primary Care Provider Unavailabl e Source Comments [facility],non-owned Affiliates and Associated Physician Practices is amultiple site organization consisting of ambulatory clinics and hospital sitesin [place], [place], [place] and [place]. This disclosure is being madepursuant to the Care Everywhere program and may not contain all information available regarding this patient. 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 Pulse 78 07/20/2012 8:25 AM CHIEF PETROLEUM ENGINEER Temperature 37 C (98.6 F) 07/20/2012 8:25 AM CHIEF PETROLEUM ENGINEER Respiratory Rate 18 07/20/2012 8:25 AM CHIEF PETROLEUM ENGINEER Oxygen Saturation 100% 07/18/2012 11:29 AM CHIEF PETROLEUM ENGINEER Inhaled Oxygen Concentration - - Weight 96.7 kg (213 lb 3.2 oz) 07/18/2012 7:41 A M CHIEF PETROLEUM ENGINEER Height 160 cm (5' 3 ) 07/18/2012 7:41 AM CHIEF PETROLEUM ENGINEER Body Mass Index 37.77 07/18/2012 7:41 AM CHIEF PETROLEUM ENGINEER Plan of Treatment Health Maintenance Due Date Last Done Comments PAP SMEAR 1992 HIV SCREENING 02/13/2007 HEPATITIS C SCREENING 02/09/2010 HEPATITIS B VACCINE (1 of 3 - 19+ 3-dose series) 02/13/2011 DTAP/TDAP/TD VACCINES (2 - T d or Tdap) 07/19/2022 07/19/2012 COVID-19 VACCINE (1 - 2023-2 5 season) 2024 INFLUENZA VACCINE (#1) 2024 DEPRESSION SCREENING 08/12/2024 ZOSTER VACCINE (1 of 2) 02/13/2042 HIB VACCINE Aged Out No longer eligi ble based on patient's age to complete this topic HPV VACCINE Aged Out No longer eligi ble based on patient's age to complete this topic MENINGOCOCCAL (Group B) VACCINE Aged Out No longer eligible based on patient's age to complete this topic MENINGOCOCCAL VACCINE Aged Out No mckay aquilino eligible based on patient's age to complete this topic PNEUMOCOCCAL VACCINE Aged Out No long er eligible based on patient's age to complete this topic Advance Directives * FULL RESUSCITATION (Latest Code Status on File) Date Activated Date Inactivated Comments 07/18/2012 5:58 PM 07/20/2012 2:27 PM * FULL RESUSCITATION Date Activated Date Inactivated Comments 07/18/2012 8:51 AM 07/18/2012 4:50 PM * FULL RESUSCITATION Date Activated Date Inactivated Comments 07/16/2012 7:25 PM 07/16/2012 9:55 PM
--- OUTSIDE RECORDS SUMMARY | 2024-10-04 13:17 | XMS_ITS | Clinical Summary ---
Author Organization [facility] Address [address] [address] Care Team Providers Care Ada Accommodation Consultant Name Role Phone Nabeel Mak Primary Care Provider [phone] Allergies No known active allergies Medications esomeprazole DR (NexIUM) 40 mg capsule Take 1 capsule (40 mg total) by mouth daily before breakfast 30 capsule 0 Active indomethacin (INDOCIN) 25 mg capsuleIndicati ons:Pain Take 1 capsule (25 mg total) by mouth 3 (three) times a day as needed for pain 30 capsule 4 Active Medical History Medical History Date Comments Anemia TB (tuberculosis), treated Sickle cell trait (CMS/HCC) (HCC) Family History Relation Name Status Comments Sister Pulmonary embol us Social History Tobacco Use Types Packs/Day Years [...] on file 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 Gender Identity Not on file Sexual Orientation Not on file Obstetrics History Last Filed Vital Signs Vital Sign Reading [...] 06/05/2024 9:12 PM CDT Plan of Treatment Health Maintenance Due Date Last Done Comments Cervical Cancer Screening 1992 Depression Screening 1992 Hepatitis C Screening 1992 Regular Well Visit/Exam 18-64 02/13/2010 DTaP/Tdap/Td Vaccine (6 - Td or Tdap) 07/19/2022 07/19/2012, 05/08/2004, 04/28/1995, Additional history exists Influenza Vaccine (#1) 2024 09/19/2018, 2016 Hepatitis B Screening Completed 01/21/1997 , 01/06/1995, 1992 Varicella Vaccines Completed 04/09/2019, 01/14/2017 HPV Vaccines Aged Out No longer eligi ble based on patient's age to complete this topic Pneumococcal vaccine <65 Aged Out No longer eligible based on patient's age to complete this topic Insurance [facility] Care Teams Ada Accommodation Consultant Relationship Specialty [place] [address] [place] [address] PCP - General Physician Typewriter Assembly And Parts Inspector 06/05/24
[2024-10-04 13:22] VITALS: BP 128/59; PULSE 80; RESP 18; TEMP 36.9; O2SAT 100
[2024-10-04 13:39] LABS: Basophils Percent Auto 0.4 % (0.2-1.2); Eosinophils Absolute Auto 0.1 K/mm3 (0-0.3); Eosinophils Percent Auto 1.8 % (0-4.4); Hematocrit 38.1 % (37.0-47.0); Hemoglobin 12.7 g/dL (12.0-15.0); Immature Granulocyte Absolute 0.02 K/mm3 (0.00-0.031); Immature Granulocyte Percent A 0.3 % (0-0.5); Lymphocytes Absolute Auto 1.34 K/mm3 (0.9-3.2); Lymphocytes Percent Auto 19.6 % (18.3-44.2); Mean Corpuscular HGB Conc 33.3 g/dl (32-36); Mean Corpuscular Hemoglobin 26.5 pg (26-34); Mean Corpuscular Volume 79.5 fl (80-100); Mean Platelet Volume 10.6 fl (7.4-10.4); Monocytes Absolute Auto 0.3 K/mm3 (0.1-0.6); Monocytes Percent Auto 4.5 % (2.6-8.5); Neutrophils Percent Auto 73.4 % (45.5-73.1); Platelet Count Result 262 k/mm3 (150-375); Red Blood Count 4.79 M/mm3 (4.2-5.4); Red Cell Distribution Width 12.2 % (11.5-14.5); White Blood Count 6.8 K/mm3 (4.5-10.0)
[2024-10-04 13:56] LABS: Prothrombin Time 13.7 Seconds (11.1-14.7)
[2024-10-04 13:57] LABS: Alanine Aminotransferase 17 U/L (6-35); Albumin Level 4.8 g/dL (3.5-5.1); Alkaline Phosphatase 79 U/L (38-126); Anion Gap 12 mmol/L (4-12); Aspartate Amino Transferase 20 U/L (14-36); Bilirubin,Total 0.7 mg/dL (0.2-1.3); Blood Urea Nitrogen 11 mg/dL (7-17); Calcium 9.4 mg/dL (8.4-10.2); Carbon Dioxide 27 mmol/L (22-30); Chloride 100 mmol/L (98-107); Estimated CRCL calculation 125 ml/min; Estimated Glomerular Filt Rate > 60; Glucose 102 mg/dL (65-110); Lipase 82 U/L (23-300); Partial Thromboplastin Time 31.7 Seconds (22.3-36.8); Potassium 4.1 mmol/L (3.4-5.0); Sodium 139 mmol/L (137-145)
[2024-10-04 14:08] LABS: Troponin I < 0.012 ng/mL (0.000-0.034)
--- NOTE | 2024-10-04 15:00 | ED_ITS ---
HPI - Chest Pain General Chief Complaint: Chest Pain Stated Complaint: chest pain Time Seen by Provider: 10/04/24 15:00 Focused HPI: This is a 34 year old female that presents to the ER for left sided chest pain/arm pain. Reports the pain is achy in nature. Reports she feels short of breath with it. This has been ongoing over the last week. Worsening since last night. She has not taken anything for pain. No recent injuries. GENERAL: Well-appearing, well-nourished, and in no acute distress. HEAD: Normocephalic, atraumatic. CHEST: Clear to auscultation. ?No respiratory distress. HEART: Regular rate and rhythm.? NEURO: ?Alert and oriented x3. Patient screened in triage and initial orders placed.? ?Additional care and disposition to be based upon?diagnostic testing and treatment. Related Data Allergies Allergy/AdvReac Type Severity Reaction Status Date / Time No Known Allergies Allergy Verified 01/02/24 15:27 Review of Systems 2 Review of Systems: CONSTITUTIONAL: Denies fever CARDIOVASCULAR: Reports chest pain. Denies edema. RESPIRATORY: Reports dyspnea. All systems reviewed & are unremarkable except as noted in HPI and below PMFSH Past Medical History Medical History Exposure to TB History of anemia Social History Social History Smoking status: Never smoker Exam 2 Narrative: GENERAL: Well-appearing, well-nourished, and in no acute distress. HEAD: Normocephalic, atraumatic. EYES: EOMI. NECK: Supple. No adenopathy or masses. No JVD CHEST: Clear to auscultation. No respiratory distress. No wheezes rales or rhonchi HEART: Regular rate and rhythm. No murmur heard. Normal peripheral pulses. EXTREMITIES: Normal range of motion. No edema. SKIN: Warm, dry, no rash. NEURO: No focal deficits. Alert and oriented x3. PSYCH: Normal mood and affect Course Course Emergency Course: Patient updated on her workup and agrees with plan of care Vital Signs Vital signs: Vital Signs Temperature 98.4 F 10/04/24 13:22 Pulse Rate 80 10/04/24 13:22 Respiratory Rate 18 10/04/24 13:22 Blood Pressure 128/59 L 10/04/24 13:22 Pulse Oximetry 100 10/04/24 13:22 Oxygen Delivery Room Air 10/04/24 13:22 Temperature 97.9 F 10/04/24 15:16 Pulse Rate 70 10/04/24 15:56 Respiratory Rate 16 10/04/24 15:56 Blood Pressure 117/82 10/04/24 15:56 Pulse Oximetry 100 10/04/24 15:56 Oxygen Delivery Room Air 10/04/24 15:56 MDM - Chest Pain MDM Narrative Medical decision making narrative: Patient presents the emergency department for episodes of chest pain ongoing over the last week. She is afebrile and nontoxic appearing. Her vitals are stable. CBC and metabolic panel without concerning findings. EKG without concerning changes and baseline and 3 hour troponin are negative. Chest x-ray without acute cardiopulmonary abnormality. Perc criteria negative. Heart score is 1. Patient updated on workup and agrees with plan of care. She is to follow up with primary provider. She was given warnings to return to the ER Differential Diagnosis Differential diagnosis: Likely stable angina, atypical chest pain, costochondritis and other (pneumonia) Lab Data Attestation: I reviewed the patient's lab results. 10/04/24 13:26 10/04/24 13:26 Labs: Lab Results 10/04/24 10/04/24 Range/Units 13:26 16:00 WBC 6.8 (4.5-10.0) K/mm3 RBC 4.79 (4.2-5.4) M/mm3 Hgb 12.7 (12.0-15.0) g/dL Hct 38.1 (37.0-47.0) % MCV 79.5 L (80-100) fl MCH 26.5 (26-34) pg MCHC 33.3 (32-36) g/dl RDW 12.2 (11.5-14.5) % Plt Count 262 (150-375) k/mm3 MPV 10.6 H (7.4-10.4) fl Immature Gran % (Auto) 0.3 (0-0.5) % Neut % (Auto) 73.4 H (45.5-73.1) % Lymph % (Auto) 19.6 (18.3-44.2) % Centre % (Auto) 4.5 (2.6-8.5) % Eos % (Auto) 1.8 (0-4.4) % Baso % (Auto) 0.4 (0.2-1.2) % Lymph # (Auto) 1.34 (0.9-3.2) K/mm3 Centre # (Auto) 0.3 (0.1-0.6) K/mm3 Eos # (Auto) 0.1 (0-0.3) K/mm3 Baso # (Auto) 0.0 (0.0-0.1) K/mm3 Abs Immat Gran (auto) 0.02 (0.00-0.031) K/mm3 Absolute Neuts (auto) 5.0 (1.3-6.7) K/mm3 Absolute Nucleated RBC 0.000 (0.0-0.012) K/mm3 Nucleated RBC % 0.0 (0.0-0.2) % PT 13.7 (11.1-14.7) Seconds INR 1.0 APTT 31.7 (22.3-36.8) Seconds Sodium 139 (137-145) mmol/L Potassium 4.1 (3.4-5.0) mmol/L Chloride 100 (98-107) mmol/L Carbon Dioxide 27 (22-30) mmol/L Anion Gap 12 (4-12) mmol/L BUN 11 (7-17) mg/dL Creatinine 0.60 L (0.7-1.0) mg/dL Estim Creat Clear Calc 125 ml/min Estimated GFR > 60 (59 - ) Glucose 102 (65-110) mg/dL Calcium 9.4 (8.4-10.2) mg/dL Total Bilirubin 0.7 (0.2-1.3) mg/dL AST 20 (14-36) U/L ALT 17 (6-35) U/L Alkaline Phosphatase 79 (38-126) U/L Troponin I < 0.012 < 0.012 (0.000-0.034) ng/mL Total Protein 9.0 H (6.3-8.2) g/dL Albumin 4.8 (3.5-5.1) g/dL Lipase 82 (23-300) U/L Imaging Data Radiologist's impression: ITS Impressions Chest X-Ray 10/04/24 13:54 IMPRESSION: 1. No acute cardiopulmonary disease. ECG Data EKG #1: ECG completion date: 10/04/24 EKG Interpretation: normal rate, sinus rhythm, no ST changes and normal QT Critical Care Time Critical Care Time Critical Care Time: No Discharge Plan Discharge Clinical Impression: Atypical chest pain Patient Disposition: Home, Self-Care Condition: Stable Instructions: Chest Pain (ED) Additional Instructions: Return to the emergency department if you experience fever, worsening chest pain, shortness of breath, or any other symptoms that are concerning to you. Tylenol or Ibuprofen as needed for pain Follow up with primary care doctor Patient Language: Ukrainian Prescriptions: No Action budesonide-formoterol 80-4.5 mcg/actuation HFA aerosol inhaler 1 puff inhalation Q12H Qty: 10.2 2RF (DME) inhalational spacing device Spacer See Rx Instructions .ROUTE .MEDSUPPLY Qty: 2 0RF Rx Instructions: As directed albuterol sulfate 90 mcg/actuation HFA aerosol inhaler 2 inh inhalation Q4H PRN (Reason: shortness of breath or wheezing) Qty: 8.5 3RF Follow-up/Referrals: Alejandrina,Praveen Chery MD [Primary Care Provider] - Quality HEART score for chest pain patients History: slightly suspicious ECG: normal Age: < or = to 45 years Risk factors: 1 or 2 risk factors Troponin: < or = to 1x normal limit Heart score: 1
[2024-10-04 15:03] VITALS: BP 145/81; PULSE 80; RESP 16; O2SAT 98
[2024-10-04 15:16] VITALS: BP 123/55; PULSE 70; RESP 18; TEMP 36.6; O2SAT 99
--- OUTSIDE RECORDS SUMMARY | 2024-10-04 15:40 | XMS_ITS | Continuity of Care Document ---
Author Organization [facility] Address [address] [place] [address] Phone Care Team Providers Care Hot Bread Baker Name Role Phone Unavailable Unavailable Unavailable Procedures Procedure Date Comprehensve oral evaluation Dental Bitewings Radiographic, Four Imag es Dental Panoramic Radiographic Image Dental prophylaxis adult Advance Directives Directive Yes / No Effective Date File Name No Information Encounters Encounter Description Practice Location Reason(s) For Visit Diagnoses Date Provider Providers Copied on Encounter [facility] , [address], [place], [place], [id number], [place] tel:[phone] [facility] [place] Dental examination 1201 5 No Information Family History Family Member Type Diagnosis Age At Onset No Information Payers Payer name Insurance type Covered alliance party ID Authoriza tion(s) [facility] 17 [id number] Social History Type Description Quantity Date Captured [...]
--- OUTSIDE RECORDS SUMMARY | 2024-10-04 15:40 | XMS_ITS | Clinical Summary ---
Author Organization [facility] Address [address] [place] [address] Care Team Providers Care Ict Security Specialist Name Role Phone Unavailable Primary Care Provider Unavailabl e Source Comments [facility],non-owned Affiliates and Associated Physician Practices is amultiple site organization consisting of ambulatory clinics and hospital sitesin [place], [place], [place] and [place]. This disclosure is being madepursuant to the Care Everywhere program and may not contain all information available regarding this patient. Last updated 18.[facility] Allergies No known active allergies Medications * [...] Comments Blood Pressure 124/74 07/20/2012 8:25 AM POLICY SERVICES REPRESENTATIVE Pulse 78 07/20/2012 8:25 AM POLICY SERVICES REPRESENTATIVE Temperature 37 C (98.6 F) 07/20/2012 8:25 AM POLICY SERVICES REPRESENTATIVE Respiratory Rate 18 07/20/2012 8:25 AM POLICY SERVICES REPRESENTATIVE Oxygen Saturation 100% 07/18/2012 11:29 AM POLICY SERVICES REPRESENTATIVE Inhaled Oxygen Concentration - - Weight 96.7 kg (213 lb 3.2 oz) 07/18/2012 7:41 A M POLICY SERVICES REPRESENTATIVE Height 160 cm (5' 3 ) 07/18/2012 7:41 AM POLICY SERVICES REPRESENTATIVE Body Mass Index 37.77 07/18/2012 7:41 AM POLICY SERVICES REPRESENTATIVE Plan of Treatment Health Maintenance Due Date [...]
--- OUTSIDE RECORDS SUMMARY | 2024-10-04 15:40 | XMS_ITS | Referral Summary ---
Author Organization [facility] Address [address] [place] [address] Care Team Providers Care Interventional Radiologist Name Role Phone Unavailable Primary Care Provider Unavailabl e Source Comments [facility],non-owned Affiliates and Associated Physician Practices is amultiple site organization consisting of ambulatory clinics and hospital sitesin [place], [place], [place] and [place]. This disclosure is being madepursuant to the Care Everywhere program and may not contain all information available regarding this patient. Last updated 18.[facility] Allergies No known active allergies Medications * [...] Comments Blood Pressure 124/74 07/20/2012 8:25 AM TACK PICKER Pulse 78 07/20/2012 8:25 AM TACK PICKER Temperature 37 C (98.6 F) 07/20/2012 8:25 AM TACK PICKER Respiratory Rate 18 07/20/2012 8:25 AM TACK PICKER Oxygen Saturation 100% 07/18/2012 11:29 AM TACK PICKER Inhaled Oxygen Concentration - - Weight 96.7 kg (213 lb 3.2 oz) 07/18/2012 7:41 A M TACK PICKER Height 160 cm (5' 3 ) 07/18/2012 7:41 AM TACK PICKER Body Mass Index 37.77 07/18/2012 7:41 AM TACK PICKER Plan of Treatment Not on file Advance Directives * FULL RESUSCITATION (Latest Code Status on File) Date Activated Date Inactivated Comments 07/18/2012 5:58 PM 07/20/2012 2:27 PM * FULL RESUSCITATION Date Activated Date Inactivated Comments 07/18/2012 8:51 AM 07/18/2012 4:50 PM * FULL RESUSCITATION Date Activated Date Inactivated Comments 07/16/2012 7:25 PM 07/16/2012 9:55 PM
--- OUTSIDE RECORDS SUMMARY | 2024-10-04 15:40 | XMS_ITS | Clinical Summary ---
Author Organization 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
--- OUTSIDE RECORDS SUMMARY | 2024-10-04 15:40 | XMS_ITS | Patient Health Summary ---
Author Organization [facility] Your.MD Address [address] [place] [address] Care Team Providers Care Transportation Operations Manager Name Role Phone Unavailable Primary Care Provider Unavailabl e Note from [facility] Your[facility]MD [facility],non-owned Affiliates and Associated Physician Practices is amultiple site organization consisting of ambulatory clinics and hospital sitesin [place], [place], [place] and [place]. This disclosure is being madepursuant to the Care Everywhere program and may not contain all information available regarding this patient. Last updated 18.[facility] Your.MD Allergies No known active allergies Medications * [...] Comments Blood Pressure 124/74 07/20/2012 8:25 AM CORE BLOWER OPERATOR Pulse 78 07/20/2012 8:25 AM CORE BLOWER OPERATOR Temperature 37 C (98.6 F) 07/20/2012 8:25 AM CORE BLOWER OPERATOR Respiratory Rate 18 07/20/2012 8:25 AM CORE BLOWER OPERATOR Oxygen Saturation 100% 07/18/2012 11:29 AM CORE BLOWER OPERATOR Inhaled Oxygen Concentration - - Weight 96.7 kg (213 lb 3.2 oz) 07/18/2012 7:41 A M CORE BLOWER OPERATOR Height 160 cm (5' 3 ) 07/18/2012 7:41 AM CORE BLOWER OPERATOR Body Mass Index 37.77 07/18/2012 7:41 AM CORE BLOWER OPERATOR Procedures * SONOGRAM - COMPLETE(Performed 08/30/2017) Performed for Encounter for supervision of normal first in second trimester (FORMERLY [facility]), Echogenic focus of heart of fetus affecting antepartum care of mother, fetus 1 (FORMERLY [facility]) * IMAGING/RADIOLOGY/XRAY RESULTS ORDER(Performed 11/05/2012) * IMAGING/RADIOLOGY/XRAY RESULTS ORDER(Performed 11/05/2012) * IMAGING/RADIOLOGY/XRAY RESULTS ORDER(Performed 11/05/2012) * IMAGING/RADIOLOGY/XRAY RESULTS ORDER(Performed 07/28/2012) * IMAGING/RADIOLOGY/XRAY RESULTS ORDER(Performed 07/25/2012) * HGB HCT PANEL(Performed 07/19/2012) * BLOOD GASES CORD NANNETTE(Performed 07/18/2012) * BLOOD TYPE VERIFICATION(Performed 07/18/2012) * EPIDURAL BLOCK(Performed 07/18/2012) * DRUG ABUSE URINE PANEL(Performed 07/18/2012) Performed for Supervision of normal first (FORMERLY [facility]) * TYPE + SCREEN PANEL(Performed 07/18/2012) Performed for Supervision of normal first ([facility]) * CBC W AUTO DIFFERENTIAL(Performed 07/18/2012) Performed for Supervision of normal first ([facility]) * DIFFERENTIAL MANUAL(Performed 07/18/2012) Performed for Supervision of normal first ([facility]) * IMAGING/RADIOLOGY/XRAY RESULTS ORDER(Performed 07/11/2012) * SONOGRAM - COMPLETE(Performed 06/23/2012) * GLUCOSE PROTEIN KETONE URINE - POINT OF CAR(Performed 06/17/2012) * SONOGRAM - COMPLETE(Performed 03/19/2012) * SONOGRAM - COMPLETE(Performed 02/20/2012) * US OB LESS THAN 14 WKS W TRANSVAG(Performed 12/07/2011) Performed for Supervision of other normal (HCC) Results * SONOGRAM - COMPLETE (08/30/2017 8:22 AM CORE BLOWER OPERATOR) Only the most recent of4 resultswithin the time period is included. Anatomical Region Laterality Modality Other 08/30/2017 8:22 AM CORE BLOWER OPERATOR Narrative 08/30/2017 12:20 PM CORE BLOWER OPERATOR [facility] PHONE: FAX: Pat. Name: GERRY BLOOD Pat. No: [id number] Study Date: 08/30/2017 8:22am , Age: 07 1990, 27 Pregnancies: 3, Para 1 Height: 62 in Weight: 184 lb LMP: Unknown GA by US: 21w0d FRANCISCO: 01/10/2018 GA Selected: 20w5d (From Known E) FRANCISCO: 01/12/2018 Referring MD: Fe Patrick MD Ornithology Teacher: Kylee Hinojosa RDMS CPT4: 50657,08598 BMI: 33.65 Hist/Ind: Echogenic Focus on Outside Scan Negative Sequential Screen MEASUREMENTS & AGE GROWTH EVALUATION Measurement GA Range Srce %for GA Ratios ----- ---- ------- BPD 5.1 cm 21w3d (67k1g-24l0a) Hadl BPD 78% FL/BPD 0.67 HC 18.3 cm 20w5d (37c5p-01a2o) Hadl HC 37% FL/AC 0.22 AC 15.3 cm 20w4d (78t6c-93f8b) Hadl AC 36% HC/AC 1.19 (1.06 - 1.24) FL 3.4 cm 20w5d (07w3w-69r6y) Hadl FL 42% CI 0.81 (0.70 - 0.86) HL 3.4 cm 21w5d (06n9q-35z9t) Brendan HL 66% GA for sonogram 21w0d (16l9w-62w5c) Weight Estimate: based on (HL,BPD,HC,AC,FL) Avg Weight: [...] of all structural or chromosomal abnormalities. Left TECHNICAL MANAGER is seen. This is small. No other [...] <Electronic Signature> 08/30/2017 12:20pm Zully Rodas MD [facility] ORDERABLES * IMAGING/RADIOLOGY/XRAY RESULTS ORDER (11/05/2012 7:39 AM CDT) Only the most recent of6 resultswithin the time period is included. Anatomical Region Laterality Modality Other Narrative 11/05/2012 7:39 AM CDT Procedure Note Document, Scanned - 11/05/2012 7:39 AM CDT Scanned Document IMAGING * (ABNORMAL) HGB HCT PANEL (07/19/2012 6:18 AM CORE BLOWER OPERATOR) Pathologist [facility] Hemoglobin 9.2(L) 12.0 - 15.6 g/dL 07/19/2012 7:00 AM CORE BLOWER OPERATOR [facility] Hematocrit 26.8(L) 35.9 - 45.5 % 07/19/2012 7:00 AM [facility] Blood specimen (specimen) BLOOD SPECIMEN / Unknown 07/19/2012 6:18 AM CORE BLOWER OPERATOR 07/19/2012 6:28 AM CORE BLOWER OPERATOR Emelyn Guerra MD LAB - OLIVERIO TOLOGY ORDERABLES [facility] [address] [place] [address] * (ABNORMAL) BLOOD GASES CORD VENOUS (07/18/2012 2:21 PM CORE BLOWER OPERATOR) Pathologist [facility] pH Cord Venous 7.34 7.28 - 7.40 pH 07/18/2012 2:21 PM [facility] pCO2 Cord Venous 47(H) 35 - 45 mm hg 07/18/2012 2:21 PM [facility] pO2 Cord Venous 31 22 - 33 mm hg 07/18/2012 2:21 PM [facility] HCO3 Cord Venous 25(H) 22 - 24 mmol/L 07/18/2012 2:21 PM [facility] BE Cord Venous -1 mmol/L 07/18/2012 2:21 PM [facility] O2 Saturation Cord Venous 56 % 07/18/2012 2:21 PM [facility] Mode Unknown (none) 07/18/2012 2:21 PM CORE BLOWER OPERATOR [facility] Sample Site Other (none) 07/18/2012 2:21 PM [facility] Sample Type Venous 07/18/2012 2:21 PM [facility] Wet Sander ID [id number] 07/18/2012 2:21 PM [facility] Notified Who instrument room technicianxiao alfred 07/18/2012 2:21 PM [facility] Notification Time 07/18/2012 14:21 07/18/2012 2:21 PM CORE BLOWER OPERATOR [facility] Notified By bfrt 07/18/2012 2:21 PM [facility] Blood specimen (specimen) CORD BLOOD SPECIMEN / Unknown 07/18/2012 1:59 PM CORE BLOWER OPERATOR Emelyn Guerra MD LAB - BLOO D GASES ORDERABLES Performing Organization Address City/[facility] Co de Phone Number [facility] [address] [place] [address] * BLOOD TYPE VERIFICATION (07/18/2012 2:03 PM CORE BLOWER OPERATOR) ABO O 07/18/2012 2:03 PM CORE BLOWER OPERATOR [facility] Rh Type Positive 07/18/2012 2:03 PM CORE BLOWER OPERATOR [facility] Miscellaneous samples (specimen) BLOOD SPECIMEN / Unknown 07/18/2012 1:41 PM CORE BLOWER OPERATOR Emelyn Guerra MD LAB - BLOO D BANK ORDERABLES [facility] * ANESTHESIA BLOCK PERF (07/18/2012 11:52 AM CORE BLOWER OPERATOR) Narrative Corina Adamson CRNA - 07/18/2012 11:52 AM CORE BLOWER OPERATOR Corina Adamson CRNA 07/18/2012 11:52 AM Epidural [...] aspirations every 2 mL. Anesthesia level achieved: [id number] response: Test dose 1.5 % Lidocaine with epinephrine 3 ml--negative Patient Care after Block: Instructions to patient: LOOM FIXER use, expected sensory deficits and activity restrictions [...] aspirations every 2 mL. Anesthesia level achieved: [id number] response: Test dose 1.5 %Lidocaine with epinephrine 3 ml--negative Patient Care after Block: Instructions to patient: LOOM FIXER use, expected sensory deficits and activityrestrictions Additional Notes: tilt Corina Adamson BYPRODUCTS OPERATOR-DEVOPS CONSULTANT GENERAL ANES THESIA ORDERABLES * DRUG ABUSE URINE PANEL (07/18/2012 8:58 AM CORE BLOWER OPERATOR) [facility] Amphetamines Screen Urine Not Detected Not Detected 07/18/2012 11:14 AM CORE BLOWER OPERATOR [facility] Barbiturates Screen Urine Not Detected Not Detected 07/18/2012 11:14 AM [facility] Benzodiazepines Screen Urine Not Detected Not Detected 07/18/2012 11:14 AM [facility] Cannabinoids Screen Urine Not Detected Not Detected 07/18/2012 11:14 AM [facility] Cocaine Screen Urine Not Detected Not Detected 07/18/2012 11:14 AM [facility] Opiate Screen Urine Not Detected Not Detected 07/18/2012 11:14 AM [facility] Phencyclidine Screen Urine Not Detected Not Detected 07/18/2012 11:14 AM [facility] Urine specimen (specimen) URINE / Unknown 07/18/2012 8:58 AM CORE BLOWER OPERATOR 07/18/2012 9:06 AM [facility] Narrative [facility] - 07/18/2012 11:14 AM [facility] Medical urine drug screening is only a [...] ng/ml Pinky Cormier MD LAB - URINE MANAGER OF ENGINEERING RY ORDERABLES Performing Organization Address City/[facility] Co de Phone Number [facility] [address] [place] [address] * TYPE + SCREEN PANEL (07/18/2012 8:58 AM CORE BLOWER OPERATOR) ABO O 07/18/2012 11:00 AM [facility] Rh Type Positive 07/18/2012 11:00 AM [facility] Antibody Screen Negative 07/18/2012 11:00 AM [facility] Miscellaneous samples (specimen) BLOOD SPECIMEN / Unknown 07/18/2012 8:58 AM CORE BLOWER OPERATOR 07/18/2012 9:05 AM CORE BLOWER OPERATOR Pinky Cormier MD LAB - BLOOD BANK OR DERABLES [facility] * (ABNORMAL) CBC W AUTO DIFFERENTIAL (07/18/2012 8:58 AM [facility]) WBC 13.3(H) 4.4 - 10.7 x10^9/L 07/18/2012 9:13 AM [facility] RBC 4.39 3.80 - 5.20 x10^12/L 07/18/2012 9:13 AM [facility] Hemoglobin 11.8(L) 12.0 - 15.6 g/dL 07/18/2012 9:13 AM [facility] Hematocrit 33.8(L) 35.9 - 45.5 % 07/18/2012 9:13 AM [facility] MCV 77.0(L) 80.7 - 98.3 fl 07/18/2012 9:13 AM [facility] MCH 26.9 26.7 - 34.0 pg 07/18/2012 9:13 AM [facility] MCHC 34.9 30.8 - 35.9 gm/dL 07/18/2012 9:13 AM [facility] RDW-CV 12.9 12.1 - 14.9 % 07/18/2012 9:13 AM [facility] MPV 10.9 9.4 - 12.9 fl 07/18/2012 9:13 AM [facility] nRBC Auto 0 07/18/2012 9:13 AM [facility] Hematology Reflex Status Manual Diff to follow (none) 07/18/2012 9:13 AM [facility] Platelet Count 225 153 - 416 x10^9/L 07/18/2012 9:13 AM [facility] Blood specimen (specimen) BLOOD SPECIMEN / Unknown 07/18/2012 8:58 AM CORE BLOWER OPERATOR 07/18/2012 9:06 AM [facility] Pinky Cormier MD LAB - HEMATOLOGY OR DERABLES Performing Organization Address City/State/[facility] Co de Phone Number [facility] [address] [place] [address] * (ABNORMAL) DIFFERENTIAL MANUAL (07/18/2012 8:58 AM [facility]) WBC Auto 13.3(H) 4.4 - 10.7 X(10)9/L 07/18/2012 9:58 AM [facility] Neutrophil % Manual 89(H) 44 - 73 % 07/18/2012 9:58 AM CORE BLOWER OPERATOR [facility] Lymphocytes % Manual 7(L) 20 - 43 % 07/18/2012 9:58 AM CORE BLOWER OPERATOR [facility] Monocytes % Manual 4(L) 5 - 13 % 07/18/2012 9:58 AM [facility] Cells Counted 100 # cells 07/18/2012 9:58 AM [facility] RBC Morphology Normal 07/18/2012 9:58 AM [facility] WBC Morph Normal 07/18/2012 9:58 AM CORE BLOWER OPERATOR [facility] Blood specimen (specimen) BLOOD SPECIMEN / Unknown 07/18/2012 8:58 AM CORE BLOWER OPERATOR 07/18/2012 9:06 AM CORE BLOWER OPERATOR Pinky Cormier MD LAB - HEMATOLOGY OR DERABLES [facility] [address] [place] [address] * GLUCOSE PROTEIN KETONE URINE - POINT OF CAR (06/17/2012 8:10 PM CORE BLOWER OPERATOR) Glucose UA negative Negative [facility] Protein UA negative Negative [facility] Ketone UA negative Negative [facility] QC Verified Yes [facility] POC T TESTING Urine specimen (specimen) URINE / Unknown 06/17/2012 8:10 PM CORE BLOWER OPERATOR Amy Crockett MD LAB - POINT OF CARE ORDERABLES [place] [address] * US OB <14WKS SINGLE GEST W [...]
[2024-10-04 15:56] VITALS: BP 117/82; PULSE 70; RESP 16; O2SAT 100
[2024-10-04] MEDS: ASPIRIN 81 MG CHEWABLE TABLET 324 MG PO (16:03)
--- NOTE | 2024-10-04 16:10 | ECG_ITS ---
Test Date: 2024-10-04 16:09:22 Measurements Intervals [place] Rate: 71 P: 55 OR: 136 QRS: 26 QRSD: 89 T: 10 QT: 350 QTc: 382 Interpretive Statements SINUS RHYTHM BORDERLINE ST-T WAVE ABNORMALITY- ANTERIOR LEADS BASELINE ARTIFACT- I, II, III, AVR, AVF, V4-V6 BORDERLINE ECG Compared to ECG 10/04/2024 13:21:25 No significant changes Electronically Signed On 10-05-2024 09:45:[address] by Chris Naidu D.O.
[2024-10-04 16:26] LABS: Troponin I < 0.012 ng/mL (0.000-0.034)
--- NOTE | 2024-10-04 17:31 | PC.NURSE ---
lab called to add on d-dimer.
[2024-10-04 18:05] LABS: D Dimer < 0.27 ug/mL (<0.48)
[2024-10-04 18:15] VITALS: BP 116/81; PULSE 68; RESP 18; TEMP 36.7; O2SAT 100
== END 2024-10-04 18:16 | disposition home or self-care (01) ==
PROVIDERS: Emergency Medicine; Emergency Provider Physician Assistant; PCP Internal Medicine
DX: R07.89 Other chest pain (principal); Z86.2 Personal history of diseases of the blood and blood-forming organs and certain disorders involving the immune mechanism; R94.31 Abnormal electrocardiogram [ECG] [EKG]
CPT/HCPCS: 36415; 71046; 80053; 83690; 84484; 85025; 85380; 85610; 85730; 93005; 99284; A9270